=== PATIENT | male | born 1960 | race Caucasian/White ===

== ENCOUNTER 2021-05-04 13:07 | Outpatient (CLI) | payer BC, SELFPAY ==
--- NOTE | ~2021-05-04 | XR_ITS ---
EXAMINATION: XR hip LT min 2V DATE: 05/04/2021 15:20 INDICATION: Left hip pain. TECHNIQUE: 2 views of left hip were obtained. COMPARISON: None. FINDINGS: Bone alignment is normal. No fracture. There is mild left hip osteoarthritis. IMPRESSION: 1. Mild left hip osteoarthritis. Reviewed, dictated and finalized at location A.
--- NOTE | ~2021-05-04 | XR_ITS ---
EXAMINATION: XR knee LT min 4V DATE: 05/04/2021 15:20 INDICATION: Left knee pain. TECHNIQUE: 4 views of left knee including standing views were obtained. COMPARISON: None. FINDINGS: There is varus angulation at the knee. No fracture. There is severe osteoarthritis of media l compartment and mild osteoarthritis of lateral and patellofemoral compartments. There is a small kn ee joint effusion. IMPRESSION: 1. Severe left knee osteoarthritis. 2. Small left knee joint effusion. Reviewed, dictated and finalized at location A.
== END 2021-05-04 13:08 ==
PROVIDERS: PCP Family Medicine; Visit Provider Family Medicine
DX: H83.09 Labyrinthitis, unspecified ear (principal); M25.562 Pain in left knee; M25.552 Pain in left hip; M16.12 Unilateral primary osteoarthritis, left hip; M17.12 Unilateral primary osteoarthritis, left knee; M25.462 Effusion, left knee
CPT/HCPCS: 73502; 73564

== ENCOUNTER 2021-08-06 07:44 | Outpatient (CLI) | payer BC, SELFPAY ==
--- NOTE | ~2021-08-06 | XR_ITS ---
EXAMINATION: XR foot RT min 3V DATE: 08/06/2021 08:09 INDICATION: Right foot pain TECHNIQUE: Dorsoplantar, lateral, and 2 oblique views of the right foot were obtained. COMPARISON: None. FINDINGS: There is no fracture. Mild osteoarthritis is noted in multiple interphalangeal joints. Ther e is questionable plantar subluxation of the second and third middle phalanges with respect to the pr oximal phalanges. The fourth and fifth middle phalanges are not definitely identified. Pes planus is noted. IMPRESSION: 1. Findings consistent with pes planus. Reviewed, dictated and finalized at location A. 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
--- NOTE | ~2021-08-06 | XR_ITS ---
EXAMINATION: XR ankle RT min 3V INDICATION: Right foot pain TECHNIQUE: Three views of the right ankle are obtained. COMPARISON: None available FINDINGS: Pes planus is noted. There is valgus angulation at the tibiotalar joint with widening at th e lateral aspect of the joint space. There is mild lateral subluxation of the talus with respect to t he distal tibia. Cystic change is noted in the lateral malleolus. No fracture is identified. IMPRESSION: 1. Findings consistent with pes planus and lateral hindfoot impingement. Reviewed, dictated and finalized at location A. 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
== END 2021-08-06 07:45 | disposition home or self-care (01) ==
LOC: CHSIMG 07:47
PROVIDERS: PCP Family Medicine; Visit Provider Orthopaedic Surgery
DX: M25.571 Pain in right ankle and joints of right foot (principal); M79.671 Pain in right foot
CPT/HCPCS: 73610; 73630

== ENCOUNTER 2021-10-15 10:54 | Outpatient (CLI) | payer BC, SELFPAY ==
--- NOTE | 2021-10-15 | ECG_ITS ---
Measurements Intervals [place] Rate: 71 P: 33 [place]: 154 QRS: -2 QRSD: 104 T: 62 QT: 387 QTc: 421 Interpretive Statements SINUS RHYTHM NORMAL ECG Electronically Signed On 10-15-2021 13:57:32 COMPRESSOR OPERATOR by Aleksandr Rubalcava D.O.
[2021-10-15 11:52] LABS: Hematocrit 44.8 % (42.0-52.0); Hemoglobin 15.5 g/dL (14.0-18.0)
[2021-10-15 12:02] LABS: Albumin Level 4.7 g/dL (3.5-5.1); Estimated Glomerular Filt Rate > 60; Glucose 98 mg/dL (65-110)
[2021-10-15 12:05] LABS: Urine Cotinine NEGATIVE
== END 2021-10-15 10:55 | disposition home or self-care (01) ==
PROVIDERS: PCP Family Medicine; Visit Provider Orthopaedic Surgery
DX: Z01.818 Encounter for other preprocedural examination (principal); M17.12 Unilateral primary osteoarthritis, left knee
CPT/HCPCS: 80307; 82040; 82565; 82947; 85014; 85018; 93005

== ENCOUNTER 2021-11-14 11:55 | Outpatient (CLI) | payer BC, SELFPAY ==
[2021-11-14 13:31] LABS: Basophils Absolute Auto 0.1 K/mm3 (0.0-0.1); Basophils Percent Auto 0.8 % (0.2-1.2); Eosinophils Absolute Auto 0.7 K/mm3 (0-0.3); Eosinophils Percent Auto 7.9 % (0-4.4); Hematocrit 45.2 % (42.0-52.0); Hemoglobin 15.4 g/dL (14.0-18.0); Immature Granulocyte Absolute 0.04 K/mm3 (0.00-0.031); Immature Granulocyte Percent A 0.5 % (0-0.5); Lymphocytes Absolute Auto 2.45 K/mm3 (0.9-3.2); Mean Corpuscular HGB Conc 34.1 g/dl (32-36); Mean Corpuscular Hemoglobin 30.4 pg (26-34); Mean Corpuscular Volume 89.3 fl (80-100); Mean Platelet Volume 10.1 fl (7.4-10.4); Monocytes Absolute Auto 0.7 K/mm3 (0.1-0.6); Monocytes Percent Auto 7.6 % (2.6-8.5); Neutrophils Absolute Auto 4.8 K/mm3 (1.3-6.7); Neutrophils Percent Auto 55.2 % (45.5-73.1); Platelet Count Result 245 k/mm3 (150-375); Red Blood Count 5.06 M/mm3 (4.6-6.20); White Blood Count 8.7 K/mm3 (4.5-10.0)
[2021-11-14 14:02] LABS: Hemoglobin A1C 5.1 % (<5.7)
== END 2021-11-14 11:56 | disposition home or self-care (01) ==
LOC: ANHSURGERY 12:01
PROVIDERS: PCP Family Medicine; Visit Provider Orthopaedic Surgery
DX: Z01.818 Encounter for other preprocedural examination (principal); M17.12 Unilateral primary osteoarthritis, left knee
CPT/HCPCS: 36415; 83036; 85025; 86850; 86900; 86901; 87081

== ENCOUNTER 2021-11-27 01:11 | Day surgery (SDC) | payer BC, SELFPAY ==
--- NOTE | 2021-11-14 12:07 | PC.NURSE ---
Report to the Outpatient Waiting Room, entrance under the green pavilion located off [facility], at time _1130_ on date _11/27/21_. OR Time: _1:30PM_. - You and your visitor will be asked a series of questions to screen for COVID 19 for your protection. - A mask is required within the hospital. One visitor will be allowed to accompany the patient into the hospital. Patients visitor will be instructed to remain with patient at all times or leave the building. VISITING HOURS 10AM-7PM, ONE VISITOR ONE TIME A DAY - USE MAIN ENTRANCE Preoperative COVID Testing Requirements: NONE Patients may have clear liquids (water, carbonated beverages, clear teas, apple juice) until 3 hours prior to surgery (1030 AM) with a maximum of 20 ounces. - No food from midnight until time of surgery Take the following medications with a SIP of water the morning of surgery: _TYLENOL IF NEEDED__ Medications to discontinue per DR. JONES - MELOXICAM 7 DAYS PRIOR TO SURGERY, Date to take last dose_11/19/21_ Medications to discontinue per ANESTHESIA - ALL VITAMINS AND SUPPLEMENTS 3 DAYS PRIOR TO SURGERY, Date to take last doe_ Please deodorant, or body powder the day of surgery. No jewelry (including any body piercings) or valuables the day of surgery, leave them at home. Please take a shower or bath the night before, or the morning of, surgery with an antibacterial soap. Wear comfortable, loose fitting clothing. - Jewelry must be removed prior to entering the operating room. Rings and piercings that are not removed may be cut off. - The hospital will not accept responsibility for valuables. - Please leave all valuables, including medications, at home the day of surgery. If you are going home after surgery, a licensed nascar driver must drive you home. - NO public transportation without another adult. - We recommend that an adult stay with you for 24 hours following discharge. - We also recommend that you do not drive, make important decision, drink alcoholic beverages, or take any drugs that were not prescribed by your health care provider for at least 24 hours after your discharge time. Follow any additional instructions given to you from DR. JONES Instructions given to ___PT and asked if any additional questions and then verbalized understanding. Patient advised to call surgeon office or pre surgery nurse liaisonLION [phone] if any additional questions.
[2021-11-14 12:11] VITALS: BP 160/90; PULSE 80; RESP 20; TEMP 37.2; O2SAT 98; BMI 36.8
[2021-11-27] VITALS (13 sets, daily range): BP systolic 119–180; BP diastolic 63–110; PULSE 83–98; RESP 12–22; TEMP 35.9–36.9; O2SAT 92–100
--- NOTE | ~2021-11-27 | XR_ITS ---
EXAMINATION: XR knee LT 2V DATE: 11/27/2021 17:21 INDICATION: Total left knee arthroplasty. Postop. TECHNIQUE: 2 views of left knee were obtained. COMPARISON: Left knee radiographs 11/14/2021 FINDINGS: There is a total left knee arthroplasty with patellar resurfacing in near-anatomic alignmen t. No fracture. There is gas in the knee joint and soft tissues, consistent with recent surgery. Ther e is a small knee joint effusion. IMPRESSION: 1. Total left knee arthroplasty in near-anatomic alignment. Reviewed, dictated and finalized at location A.
--- NOTE | 2021-11-27 07:17 | WPDHPUPDATE1 ---
History and Physical Update Update Date/Time: 11/27/21 07:17 History and Physical has been reviewed, including an updated exam of the patient. There are NO changes in the patient's condition. Risks, benefits, and alternatives have been discussed and questions answered. Patient agrees to proceed with procedure.
--- NOTE | 2021-11-27 08:05 | WPDANESEPPF ---
Anes - Initial Pre Proc Eval Procedure: Operation Date: 11/27/21 13:30 Proposed Procedures p Left Total Knee Arthroplasty - Jose Hawkins MD Date/Time: 11/27/21 08:05 Surgeon: Jose Hawkins MD Pre Op Diagnosis: primary OA left knee Patient Data Age: 61 Gender: M Height: 1.83 m Weight: 123.3 kg Last Vital Signs Temp 37.2 C 11/14/21 12:11 Pulse 80 11/14/21 12:11 Resp 20 11/14/21 12:11 BP 160/90 H 11/14/21 12:11 Pulse Ox 98 11/14/21 12:11 Allergies Allergy/AdvReac Type Severity Reaction Status Date / Time No Known Allergies Allergy Verified 11/14/21 13:30 Home Medications Medication Instructions Recorded Confirmed Type meloxicam 15 mg tablet 15 mg PO QAM 06/08/21 11/14/21 History rosuvastatin 10 mg tablet 10 mg PO QAM 06/08/21 11/14/21 History acetaminophen [Tylenol Ex Str 1,000 mg PO QID PRN 11/14/21 11/14/21 History Rapid Release] cholecalciferol (vitamin D3) 1 cap QAM 11/14/21 11/14/21 History zinc 1 cap QAM 11/14/21 11/14/21 History ECG: Date of Service: 10/15/21 Procedure(s): CA 12 lead EKG Accession Number(s): [id number] cc: ~ Measurements Intervals [place] Rate: 71 P: 33 [place]: 154 QRS: -2 QRSD: 104 T: 62 QT: 387 QTc: 421 Interpretive Statements SINUS RHYTHM NORMAL ECG Electronically Signed On 10-15-2021 13:57:32 INVESTIGATIONS MANAGER by Aleksandr Rubalcava D.O. Patient hx anesthesia problems: none Family hx anesthesia problems: none Results Review: All pre-operative results and documents have been reviewed as part of the pre-operative evaluation. 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 Hyperlipidemia Hypertension Obesity Posterior tibial tendon dysfunction (PTTD) of right lower extremity Right ankle instability Tobacco abuse Tooth pain Surgical History Surgical History History of left knee surgery 1980 & 1975 - Arthroscopic History of repair of anterior cruciate ligament of right knee (~1995) History of throat surgery (~1993) Cyst Excision Family History Family History Father Family history of malignant neoplasm Mother Breast cancer Arthritis Other Family history of cardiovascular disease HLD (hyperlipidemia) Hypertension Social History Social History Smoking packs per day: 2 Smoking cigarettes per day: 40.0 Years smoked: 40 Smoking pack-years: 80.00 Tobacco type: cigarettes Second hand tobacco smoke exposure: No Smoking end date: 08/17/21 Alcohol intake: current Alcohol use details: 15/WEEK WHEN SMOKEING - STATES NOW 2/MONTH Substance use: unknown Substance use type: does not use Living arrangements: with family 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[employer] Gender identity (if verbalized by the patient): Male Spiritual care concerns: No Anes - Eval Final PreProcedure Day of Procedure 11/27/21 08:05 Patient weight: obese Heart: regular rate and rhythm Lungs: clear to auscultation and normal air movement Airway: Mallampati scale class II Neurological: alert and oriented Last oral intake: >/= 8 hours ASA classification: III Emergent: no Anesthetic plan: proceed Anesthesia type and monitoring: general LMA Results Review: All pre-operative results and documents have been reviewed as part of the pre-operative evaluation. Informed Consent: The patient's anesthetic plan and its attendant risks and
--- NOTE | 2021-11-27 08:07 | WPDANESPNB ---
Anes - Peripheral Nerve Block Date/Time: 11/27/21 08:07 I have discussed with the patient/family/POA the placement of a peripheral nerve block for post-operative pain management, including associated risks, benefits, complications, and side effects. Alternative methods of post-operative analgesia were detailed. Questions were solicited and answers provided to the satisfaction of the patient/family/POA. Time-Out: A pre-procedural Time-Out was completed immediately before starting the procedure and confirmed: Patient Identification, Site, Procedure, Patient Position and the Availability of Requisite Equipment. Clinical Indications: Acute post-operative pain management requested by the operative surgeon. Nerve Block Insertion Note Anes-nerve block: adductor canal left Patient position: supine Skin prep: chlorhexidine Needle: 22 gauge, stimulating, insulated echogenic needle. Needle length: 80 mm Technique: ultrasound Technique comment: in plane Injectate: bupivacaine 0.5% with epi 5 mcg/ml (30cc) Observations: tolerated well Complications: none Procedure start time:: 1325 Procedure end time:: 1330
[2021-11-27] MEDS: ACETAMINOPHEN 500 MG TABLET 1000 MG PO (12:26)
[2021-11-27] MEDS: TRANEXAMIC ACID 1,000MG/ISO100 1,000 MG/100 ML BAG 200 MG IVPB (12:26)
[2021-11-27] MEDS: LACTATED RINGERS 1,000 ML 30 ML IV CONT ×2 (12:27→16:25)
[2021-11-27] MEDS: ceFAZolin 3 GM/D5W 100 ML 100 ML IVPB (13:43)
--- NOTE | 2021-11-27 16:29 | W.PM.PROC2 ---
Procedure Note - Detailed Date of Procedure 11/27/21 Pre-op Diagnosis primary OA left knee Post-op Diagnosis Same Procedure Performed Left total knee arthroplasty Surgeon Jose Hawkins MD Technician Chemical Cleaning Teri Montano PA-C Anesthesia General Findings Extensive synovitis throughout the knee with a large effusion. The tissue was quite inflammatory in appearance. Bone quality was very good. Standard 8 mm distal release and 3? external rotation. Minimal tibial resection just through the sclerotic bone performed medially. He did require an extensive medial release. This was expected due to the preoperative clinical presentation and varus thrust. Description of Procedure The patient was given a nerve block preoperatively, and then brought to the operating room. A general anesthetic was administered. The leg was prepped and draped in the usual sterile fashion. The limb was elevated and the tourniquet inflated to 300 mmHg. A longitudinal incision was created along the medial border of the patella and patellar tendon, and a trivector approach to the knee was performed. A large medial release was taken. The knee was then flexed. The osteophytes were carefully removed. The intramedullary guide was placed in the femoral canal. The distal femoral resection was then taken with the oscillating saw. The collateral ligaments were carefully protected. The tibia was carefully exposed. The jig was applied, and the proximal tibia was resected according to preoperative plan. The anesthetic mixture was injected into the periarticular tissues. The knee was balanced in extension with additional medial release required. The anterior and posterior cruciate ligament and meniscal remnants were removed. The patella was measured. Patellar resection was carried out with the oscillating saw. The lug holes drilled. The femur was sized and rotation assessed using a combination of gap balancing, posterior referencing, and the AP axis. The 4 in 1 cutting block was used to finish the femoral cuts after equal gaps were assured. The box cut taken. The osteophytes were carefully removed from the back of the knee. The knee was copiously irrigated with antibiotic solution periodically throughout the procedure. The spacer block was used to confirm equal flexion and extension gaps. The flexion gap was equally balanced with a 13 mm insert. The medial gap remained slightly tight and additional medial release was performed. The lateral compartment and extension was acceptably more lax than the medial side. The tibia was sized and broached. The bony surfaces were prepared for cementing with pulsatile lavage. The real tibial component and femoral components were cemented into position. Excess cement was carefully removed. The polyethylene insert was placed. The patella component was subsequently cemented. Patellar tracking was carefully assessed. No additional releases were required. The wound was closed with #1 Vicryl suture, #2 Quill suture, 2-Nvvenm-usm suture, and 2-0 Strata-fix suture followed by Steri-Strips. A sterile bulky dressing was applied. Meticulous hemostasis was maintained throughout the procedure. There were no complications. The patient was extubated and brought to the recovery room in stable condition after the application of sterile dressing with Jonas bandage. Physician physical therapist assistant, Teri Montano PA-C, required for surgery; including patient positioning, draping, tissue retraction, maintaining instrument position, cement removal, wound closure, and dressing placement. Implants [employer] Triathlon knee system, universal cemented tibia size 7, cemented posterior stabilized femoral component size 6 ,and an 13 mm posterior stabilizing polyethylene insert. 38mm asymmetric cemented patella component. Estimated Blood Loss 200 Drains No Packing No Pathology None sent Complications No immediate complications Condition Stable Disposition PACU
[2021-11-27] MEDS: fentaNYL CITRATE INJ (*CRX) 100 MCG/2 ML VIAL 25 MCG IV PUSH ×8 (16:36→16:51)
[2021-11-27] MEDS: HYDROmorphone HCL INJ (*CRX) 1 MG/ML SYR 0.5 MG IV PUSH ×4 (17:05→17:20)
[2021-11-27] MEDS: diphenhydrAMINE HCl INJ 50 MG/ML VIAL 12.5 MG IV PUSH ×2 (17:07→17:24)
--- NOTE | 2021-11-27 18:00 | ADMGEN ---
This patient, Nick Truong, was admitted to Medical Room 245-. Patient/family oriented to hospital policies and general routines including ID bracelet, bed and alarms, visiting hours, pain management, procedures, bathroom and other care routines, personal items, smoking policy, room service/diet, and visiting hours. Information on how to activate the Rapid Response Team has been discussed. Patient/Family are encouraged to report perceived risks to care and to ask questions if they do not understand what they are told or what they should do.
[2021-11-27] MEDS: SODIUM CHLORIDE 0.9% IV 1,000 ML 125 ML IV CONT (18:41)
[2021-11-27] MEDS: ASPIRIN 81 MG ENTERIC TABLET PO (18:42)
[2021-11-27] MEDS: SENNA/DOCUSATE SODIUM TABLET 2 TAB PO (18:43)
[2021-11-27] MEDS: oxyCODONE HCL (*CRX) 5 MG TAB IR PO (19:35)
[2021-11-27] MEDS: FAMOTIDINE 20 MG TABLET PO (21:12)
[2021-11-27] MEDS: ceFAZolin 2 GM/D5W 50 ML 2 GM/50 ML BAG IVPB (21:12)
[2021-11-28] MEDS: oxyCODONE HCL (*CRX) 5 MG TAB IR PO ×3 (00:09→08:16)
[2021-11-28 03:28] VITALS: BP 119/67; PULSE 83; RESP 20; TEMP 36; O2SAT 97
[2021-11-28] MEDS: ceFAZolin 2 GM/D5W 50 ML 2 GM/50 ML BAG IVPB (05:28)
[2021-11-28] MEDS: SENNA/DOCUSATE SODIUM TABLET 2 TAB PO (08:11)
[2021-11-28] MEDS: MELOXICAM 7.5 MG TABLET 15 MG PO (08:11)
[2021-11-28] MEDS: FAMOTIDINE 20 MG TABLET PO (08:11)
[2021-11-28] MEDS: polyethylene glycoL 3350 17 GM POWD.PACK PO (08:11)
[2021-11-28] MEDS: ASPIRIN 81 MG ENTERIC TABLET PO (08:11)
[2021-11-28] MEDS: ROSUVASTATIN 10 MG TABLET PO (08:11)
--- NOTE | 2021-11-28 10:19 | P.DS_ITS ---
DS: Admitting Diagnosis Discharge Date 11/28/21 Admitting Diagnosis OA knee Left DS: Discharge Diagnosis Discharge Diagnosis (1) Status post left knee replacement: Code(s): Z96.652 - Presence of left artificial knee joint Status: Acute Assessment and Plan: Postop day 1: Left total knee arthroplasty. Patient tolerated procedure well. No complications. Pain manageable with pain medication. No numbness or tingling. We had a lengthy discussion regarding postoperative wound care, limitations, expectations, and exercises. Patient shows good understanding. He has had initial physical therapy and is tolerating it well. DVT prophylaxis: 81 mg baby aspirin b.i.d. for 14 days. Compression socks. Short frequent walks. Pain medication: Percocet. Prednisone. Meloxicam. Patient has followup appointment with Dr. Hawkins in 3 weeks. DS: Summary Hospital Course Reason for hospitalization: Total knee arthroplasty Hospital Course: Patient tolerated procedure well. Has had initial PT/OT. Status at Discharge Functional status at discharge: uses cane/walker Overall status at discharge: patient is progressing back to baseline Time Spent with Patient Time attestation: Total time spent providing and/or coordinating discharge services: Exam Narrative: Overweight 61 y/o Male. Resting comfortably in bed. Wearing compression socks bilaterally. Dressing intact with small amount of bloody drainage. Moderate swelling. Small area of ecchymosis. No erythema. No hematoma. Range of motion limited due to pain. Calf nontender. Neurologic status intact. No varicosities. Distal pulses palpable. Discharge Plan Discharge Patient Disposition: Home, Self-Care Discharge Instructions: See green medication and instruction sheet. Patient Instructions: Precautions after Total Joint Replacement Surgery (DC), Knee Replacement (DC) Follow-up/Referrals: Teri Montano PA [Physician Industrial Maintenance Repairer] - Discharge Medications: New prednisone 5 mg tablet 5 mg PO DAILY 21 Days Qty: 21 RF: 0 aspirin 81 mg tablet,delayed release (DR/EC) 81 mg PO BID 14 Days Qty: 28 RF: 0 oxycodone-acetaminophen 5-325 mg tablet 1 - 2 tablet PO Q4-6H MDD 6 PRN (Reason: pain) Qty: 30 RF: 0 Continued meloxicam 15 mg tablet 15 mg PO QAM RF: 0 rosuvastatin 10 mg tablet 10 mg PO QAM RF: 0 cholecalciferol (vitamin D3) 1 cap QAM RF: 0 zinc 1 cap QAM RF: 0 Held acetaminophen 500 mg Tablet 1,000 mg PO QID PRN (Reason: Pain) RF: 0 Hold Instructions: Resume on 12/12/21. Do not take more than 3,000-4,000 mg Tylenol in a 24 hour period. Pain medication has 325 mg Tylenol in each pill.
[2021-11-28 10:31] VITALS: BP 140/73; PULSE 86; RESP 20; TEMP 36.2; O2SAT 100
[2021-11-28] MEDS: oxyCODONE HCL (*CRX) 5 MG TAB IR 10 MG PO (11:58)
== END 2021-11-28 14:10 | disposition home or self-care (01) ==
LOC: ANHSURGERY 11:19 → ANH2MED 18:03
PROVIDERS: PCP Family Medicine; Visit Provider Orthopaedic Surgery
PROC: (CPT 27447; principal; 2021-11-27 13:30)
DX: M17.12 Unilateral primary osteoarthritis, left knee (principal); G89.18 Other acute postprocedural pain; I10 Essential (primary) hypertension; E78.5 Hyperlipidemia, unspecified; E66.9 Obesity, unspecified; Z68.36 Body mass index [BMI] 36.0-36.9, adult; Z87.891 Personal history of nicotine dependence
CPT/HCPCS: 27447; 64447; 73560; 97110; 97116; 97161; 97165; A9270; C1713; C1776; J0131; J0171; J0690; J1100; J1170; J1200; J1885; J2250; J2270; J2405; J2704; J2795; J3010; J7030; J7120

== ENCOUNTER 2021-12-05 13:21 | Emergency (ER) | payer BC, SELFPAY ==
[2021-12-05] VITALS (9 sets, daily range): BP systolic 132–158; BP diastolic 79–84; PULSE 80–91; RESP 18–26; TEMP 36.9; O2SAT 96–100
--- NOTE | ~2021-12-05 | CT_ITS ---
EXAMINATION: CT brain wo con DATE: 12/05/2021 13:28 INDICATION: Right facial weakness. TECHNIQUE: Computed tomography (CT) of the head was performed without intravenous contrast. The mA wa s adjusted according to patient size. Iterative reconstruction technique was employed. The dose-lengt h product was 605.33 mGy-cm. COMPARISON: None FINDINGS: There is no intracranial hemorrhage, acute infarction, or abnormal intracranial mass lesion . The ventricles are normal in size. There is mild mucosal thickening in the kidneys and sinuses. The orbits are normal. The mastoid air cells are normal. IMPRESSION: 1. Normal brain. I called this result to Dr. Garcia. Reviewed, dictated and finalized at location A.
--- NOTE | ~2021-12-05 | XR_ITS ---
EXAMINATION: XR chest 1V portable EXAM DATE: 12/05/2021 13:40 INDICATION: Left facial drooping, numbness. TECHNIQUE: Portable AP frontal chest x-ray was obtained. There is no prior study for comparison. FINDINGS: The lungs are clear. There are no pleural effusions. Cardiac silhouette is prominent but magnified on this AP technique. There is no pneumothorax suspected. The bones and soft tissues are unremarkable. IMPRESSION: No acute cardiopulmonary findings. Reviewed, dictated and finalized at location A.
--- NOTE | 2021-12-05 13:23 | ECG_ITS ---
Measurements Intervals [place] Rate: 88 P: 43 [place]: 152 QRS: -8 QRSD: 95 T: 64 QT: 350 QTc: 425 Interpretive Statements SINUS RHYTHM COMPARED TO ECG 10/15/2021 11:58:36 NO SIGNIFICANT CHANGES Electronically Signed On 12-05-2021 14:27:52 CDT by Stephie Fallon M.D.
[2021-12-05 13:35] LABS: Glucose Point of Care 143 mg/dl (65-105)
[2021-12-05 13:49] LABS: Basophils Percent Auto 0.3 % (0.2-1.2); Eosinophils Percent Auto 8.7 % (0-4.4); Hematocrit 38.8 % (42.0-52.0); Immature Granulocyte Absolute 0.17 K/mm3 (0.00-0.031); Immature Granulocyte Percent A 1.4 % (0-0.5); Lymphocytes Absolute Auto 1.81 K/mm3 (0.9-3.2); Lymphocytes Percent Auto 15.3 % (18.3-44.2); Mean Corpuscular HGB Conc 33.5 g/dl (32-36); Mean Corpuscular Hemoglobin 30.3 pg (26-34); Mean Corpuscular Volume 90.4 fl (80-100); Mean Platelet Volume 8.8 fl (7.4-10.4); Monocytes Absolute Auto 0.8 K/mm3 (0.1-0.6); Monocytes Percent Auto 6.9 % (2.6-8.5); Neutrophils Absolute Auto 7.9 K/mm3 (1.3-6.7); Neutrophils Percent Auto 67.4 % (45.5-73.1); Platelet Count Result 497 k/mm3 (150-375); Red Blood Count 4.29 M/mm3 (4.6-6.20); Red Cell Distribution Width 12.4 % (11.5-14.5); White Blood Count 11.8 K/mm3 (4.5-10.0)
[2021-12-05 13:58] LABS: Prothrombin Time 12.9 Seconds (11.1-14.7)
[2021-12-05 13:59] LABS: Partial Thromboplastin Time 31.5 SECONDS (22.3-36.8)
[2021-12-05 14:20] LABS: Alanine Aminotransferase 53 U/L (4-50); Albumin Level 4.3 g/dL (3.5-5.1); Alkaline Phosphatase 90 U/L (38-126); Anion Gap 11 mmol/L (8-16); Aspartate Amino Transferase 34 U/L (17-59); Bilirubin,Total 0.7 mg/dL (0.2-1.3); Blood Urea Nitrogen 21 mg/dL (9-20); Calcium 9.3 mg/dL (8.4-10.2); Carbon Dioxide 23 mmol/L (22-30); Chloride 100 mmol/L (98-107); Estimated Glomerular Filt Rate > 60; Glucose 120 mg/dL (65-110); Potassium 4.2 mmol/L (3.4-5.0); Sodium 134 mmol/L (137-145)
[2021-12-05 14:26] LABS: Troponin I < 0.012 ng/mL (0.000-0.034)
--- NOTE | 2021-12-05 15:21 | ED.NEUROSD ---
HPI - Neuro Symptoms/Deficit General Chief Complaint: Suspected CVA Stated Complaint: ?CVA, R facial droop, LNW 1200 Time Seen by Provider: 12/05/21 13:25 Source: patient Mode of arrival: EMS Limitations: no limitations History of Present Illness HPI Narrative: 61-year-old with a history of hyperlipidemia, s/p recent left knee replacement here with complaints of right facial droop started about 1 hour ago. He states that he was sitting down watching TV and he felt his right side of his face numb and droopy. He called his who later called EMS and was brought in here. He denies any headache, chest pain or shortness of breath. Denies any weakness in any of his limbs. No previous history of strokes. Onset (ago): hour(s) (1) Timing confirmed by: spouse Location: right face Severity: moderate Quality: tingling Relieving factors: none Exacerbating factors: none Associated symptoms: denies other symptoms Related Data Home Medications Medication Instructions Recorded Confirmed meloxicam 15 mg tablet 15 mg PO QAM 06/08/21 11/14/21 rosuvastatin 10 mg tablet 10 mg PO QAM 06/08/21 11/14/21 acetaminophen 1,000 mg PO QID PRN 11/14/21 11/14/21 cholecalciferol (vitamin D3) 1 cap QAM 11/14/21 11/14/21 zinc 1 cap QAM 11/14/21 11/14/21 Allergies Allergy/AdvReac Type Severity Reaction Status Date / Time No Known Allergies Allergy Verified 11/27/21 18:16 Review of Systems Review of Systems: All systems reviewed & are unremarkable except as noted in HPI and below Constitutional: Constitutional: Reports no additional constitutional complaints Eyes: Eyes: Reports no additional eye complaints ENT: Reports system reviewed and no additional complaints, except as documented Cardiovascular: Cardiovascular: Reports no additional cardiovascular complaints Respiratory: Respiratory: Reports no additional respiratory complaints Gastrointestinal: Gastrointestinal: Reports no additional gastrointestinal complaints Musculoskeletal: Musculoskeletal: Reports no additional musculoskeletal complaints Neurologic: Reports as per HPI Psychiatric: Psychiatric: Reports no additional psychiatric complaints [facility] Past Medical History Medical History 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 Hyperlipidemia Hypertension Obesity Posterior tibial tendon dysfunction (PTTD) of right lower extremity Right ankle instability Tobacco abuse Tooth pain Surgical History Surgical History History of left knee surgery 1980 & 1975 - Arthroscopic History of repair of anterior cruciate ligament of right knee (~1995) History of throat surgery (~1993) Cyst Excision Family History Family History Father Family history of malignant neoplasm Mother Breast cancer Arthritis Other Family history of cardiovascular disease HLD (hyperlipidemia) Hypertension Social History Social History Smoking status: Never smoker Second hand tobacco smoke exposure: No Alcohol intake: current Drinks per week: 10 Alcohol use details: 15/WEEK WHEN SMOKEING - STATES NOW 2/MONTH Substance use type: marijuana Other substance usage details: Marijuana over a year ago 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 HEAD: Normocephalic, atraumatic. EYES: PERRLA and EOMI. ENT: Nares clear, no rhinorrhea or epistaxis. Mucous membranes moist. Right facial droop NECK: Supple. CHEST: Clear to auscultation. No respiratory distress. HEART: Regular rate and rhythm. No murmur heard. Normal peripheral pulses. ABDOMEN: Soft,
== END 2021-12-05 15:40 | disposition home or self-care (01) ==
PROVIDERS: Emergency Provider Family Medicine; PCP Family Medicine
DX: G51.0 Bell's palsy (principal); M19.90 Unspecified osteoarthritis, unspecified site; I10 Essential (primary) hypertension; E78.5 Hyperlipidemia, unspecified
CPT/HCPCS: 36415; 70450; 71045; 80053; 82948; 84484; 85025; 85610; 85730; 93005; 99284

== ENCOUNTER 2021-12-12 09:46 | Outpatient (RCR) | payer BC, SELFPAY ==
--- NOTE | 2021-12-12 10:57 | PTOPEVAL ---
Thank you for referring Nick Truong to [facility]– [place] The patient is scheduled to be seen for therapy? __3__x/week for 12 visits. Please review, sign, date and return this plan of care ANU. I agree with and certify that the following plan of care is medically necessary. Referring Physician Date Admitting Provider: Attending Provider: Jose Hawkins MD Referring Provider: *PT Outpatient Evaluation Start: 12/12/21 10:05 Freq: Status: Active Protocol: Document 12/12/21 10:03 SHADIA (Rec: 12/12/21 10:56 [email or web address]) Therapy Assessment Status Assessment Status Assessment Status Evaluation Outpatient Past Medical History Neurological History Hx Neurological Disorders No Significant History Cardiovascular History Hx Hypercholesterolemia Yes Respiratory History Hx Respiratory Disorders No Significant History Gastrointestinal History Hx Gastrointestinal Disorders No Significant History Genitourinary History Hx Genitourinary Disorders No Significant History Musculoskeletal History Hx Arthritis Yes: GENERALIZED Hx Orthopedic Surgery Yes: RT KNEE ACL, LT KNEE X2 Hx Other Musculoskeletal Disorders Yes: PT OCCASIONALLY AMBULATES WITH CANE Hematological History Hx Hematological Disorders No Significant History Endocrine History Hx Endocrine Disorders No Significant History HEENT History Hx Sinus Problems Yes: TEETH REMOVED 08/2021 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 11/14/21 Hx Other HEENT Disorders Yes: READING GLASSES Integumentary History Hx Excision Skin Lesion Yes: EXC SUBCUTANEOUS CYST RT ANTERIOR NECK, EXC FATTY TUMOR LT GROIN Reproductive History Hx Reproductive Disorders No Significant History Psychosocial History Hx Recent Lifestyle Changes Yes: QUIT SMOKING 08/17/21 AFTER 40YRS OF SMOKING Pain History Has Past Pain Affected Your Daily Life Yes: RT KNEE Anesthesia History Hx Anesthesia Reactions No Significant History Other History Hx Implanted Device Yes Evaluation Information Problem Diagnosis s/p left TKA Onset 11/27/21 Subjective Information Pt. reports that he underwent Query Text:As Reported By Patient/ surgery on 11/27/21. He states Family that he developed complication after surgery and could not initially begin therapy after surgery. He reports that he has been doing light exercise at home. He states that he is curr
--- NOTE | 2022-01-10 12:01 | PTOPEVAL ---
Thank you for referring Nick Truong to [facility].? The patient is scheduled to be seen for therapy? __1__x/week for 4 visits. Please review, sign, date and return this plan of care ANU. I agree with and certify that the following plan of care is medically necessary. Referring Physician Date Admitting Provider: Attending Provider: Jose Hawkins MD Referring Provider: *PT Outpatient Evaluation Start: 12/12/21 10:05 Freq: Status: Active Protocol: Document 01/09/22 11:24 SHADIA (Rec: 01/09/22 11:57 SHADIA [email or web address]) Therapy Assessment Status Assessment Status Assessment Status Progress Outpatient Past Medical History Neurological History Hx Neurological Disorders No Significant History Cardiovascular History Hx Hypercholesterolemia Yes Respiratory History Hx Respiratory Disorders No Significant History Gastrointestinal History Hx Gastrointestinal Disorders No Significant History Genitourinary History Hx Genitourinary Disorders No Significant History Musculoskeletal History Hx Arthritis Yes: GENERALIZED Hx Orthopedic Surgery Yes: RT KNEE ACL, LT KNEE X2 Hx Other Musculoskeletal Disorders Yes: PT OCCASIONALLY AMBULATES WITH CANE Hematological History Hx Hematological Disorders No Significant History Endocrine History Hx Endocrine Disorders No Significant History HEENT History Hx Sinus Problems Yes: TEETH REMOVED 08/2021 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 11/14/21 Hx Other HEENT Disorders Yes: READING GLASSES Integumentary History Hx Excision Skin Lesion Yes: EXC SUBCUTANEOUS CYST RT ANTERIOR NECK, EXC FATTY TUMOR LT GROIN Reproductive History Hx Reproductive Disorders No Significant History Psychosocial History Hx Recent Lifestyle Changes Yes: QUIT SMOKING 08/17/21 AFTER 40YRS OF SMOKING Pain History Has Past Pain Affected Your Daily Life Yes: RT KNEE Anesthesia History Hx Anesthesia Reactions No Significant History Other History Hx Implanted Device Yes Evaluation Information Problem Diagnosis s/p left TKA Onset 11/27/21 Subjective Information Pt. reports he is improved. 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
--- NOTE | 2022-01-17 06:38 | PTOPEVAL ---
Thank you for referring Nick Truong to [facility] - [place].? The patient is scheduled to be seen for therapy? __2__x/week for 8 visits. Please review, sign, date and return this plan of care ANU. I agree with and certify that the following plan of care is medically necessary. Referring Physician Date Admitting Provider: Attending Provider: Jose Hawkins MD Referring Provider: *PT Outpatient Evaluation Start: 12/12/21 10:05 Freq: Status: Active Protocol: Document 01/09/22 11:24 SHADIA (Rec: 01/09/22 11:57 SHADIA [email or web address]) Therapy Assessment Status Assessment Status Assessment Status Progress Outpatient Past Medical History Neurological History Hx Neurological Disorders No Significant History Cardiovascular History Hx Hypercholesterolemia Yes Respiratory History Hx Respiratory Disorders No Significant History Gastrointestinal History Hx Gastrointestinal Disorders No Significant History Genitourinary History Hx Genitourinary Disorders No Significant History Musculoskeletal History Hx Arthritis Yes: GENERALIZED Hx Orthopedic Surgery Yes: RT KNEE ACL, LT KNEE X2 Hx Other Musculoskeletal Disorders Yes: PT OCCASIONALLY AMBULATES WITH CANE Hematological History Hx Hematological Disorders No Significant History Endocrine History Hx Endocrine Disorders No Significant History HEENT History Hx Sinus Problems Yes: TEETH REMOVED 08/2021 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 11/14/21 Hx Other HEENT Disorders Yes: READING GLASSES Integumentary History Hx Excision Skin Lesion Yes: EXC SUBCUTANEOUS CYST RT ANTERIOR NECK, EXC FATTY TUMOR LT GROIN Reproductive History Hx Reproductive Disorders No Significant History Psychosocial History Hx Recent Lifestyle Changes Yes: QUIT SMOKING 08/17/21 AFTER 40YRS OF SMOKING Pain History Has Past Pain Affected Your Daily Life Yes: RT KNEE Anesthesia History Hx Anesthesia Reactions No Significant History Other History Hx Implanted Device Yes Evaluation Information Problem Diagnosis s/p left TKA Onset 11/27/21 Subjective Information Pt. reports he is improved. 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
== END 2022-02-13 16:20 | disposition home or self-care (01) ==
LOC: CHSPT 09:46
PROVIDERS: Visit Provider Orthopaedic Surgery
DX: Z47.1 Aftercare following joint replacement surgery (principal); Z96.652 Presence of left artificial knee joint
CPT/HCPCS: 97016; 97110; 97112; 97161; 97530

== ENCOUNTER 2022-10-14 13:17 | Outpatient (CLI) | payer OTHER, SELFPAY ==
--- NOTE | ~2022-10-14 | MR_ITS ---
EXAMINATION: MR shoulder RT wo con DATE: 10/14/2022 14:41 INDICATION: Right shoulder pain, radiating to the elbow, pulling injury on the very first, limited RO M. TECHNIQUE: Magnetic resonance imaging (MRI) of the right shoulder was performed without intravenous c ontrast. Sequences included axial PD-weighted FS FSE, coronal oblique PD-weighted FS FSE and T2-weigh tu FS FSE, and sagittal oblique T2-weighted FS FSE and T1-weighted FSE. COMPARISON: None. FINDINGS: Coracoacromial arch: No significant anterolateral downsloping of the type I acromion. No significant subcoracoid or subacr omial narrowing. Minimal acromial tip enthesopathy. Moderate AC joint hypertrophy Rotator cuff: Moderate thickening and abnormal signal within the distal portions of the supraspinatus and infraspin atus tendons, in the critical zone. The subscapularis and teres minor are intact. Bursal sided frayin g. Biceps tendon and glenoid labrum: The long head of biceps tendon is torn and retracted. The short head of biceps tendon is intact. Exte nsive signal change in the glenoid labrum. Granulation tissue filled posterior labral tear, extending superiorly. Fluid: Moderate fluid in the subacromial subdeltoid bursa and along the pathway and tendon sheath of the tor n long head of biceps tendon. Bones/cartilage: No suspicious focal or diffuse marrow signal. Degenerative subcortical cystic change in the posterior lateral humeral head and inferior to the lesser tuberosity. IMPRESSION: 1. Complete tear of the long head of biceps tendon, with retraction. 2. Moderate supraspinatus and infraspinatus tendinopathy, with bursal sided fraying. 3. Moderate subacromial/subdeltoid bursitis. 4. Healed/partially healed SLAP tear. 5. Moderate AC joint and mild glenohumeral joint osteoarthritis. Reviewed, dictated and finalized at location K. MANAGEMENT SUPERVISOR IMPRESSION: 1. Complete tear of the long head of biceps tendon, with retraction. 2. Moderate supraspinatus and infraspinatus tendinopathy, with bursal sided fra milly. 3. Moderate subacromial/subdeltoid bursitis. 4. Healed/partially healed SLAP tear. 5. Moderate AC joint and mild glenohumeral joint osteoarthritis.
== END 2022-10-14 13:18 ==
PROVIDERS: PCP Family Medicine; Visit Provider Physician Assistant
DX: S46.111A Strain of muscle, fascia and tendon of long head of biceps, right arm, initial encounter (principal); M75.51 Bursitis of right shoulder; S43.431A Superior glenoid labrum lesion of right shoulder, initial encounter; M19.011 Primary osteoarthritis, right shoulder; T14.90XA Injury, unspecified, initial encounter
CPT/HCPCS: 73221

== ENCOUNTER 2022-11-25 14:59 | Outpatient (RCR) | payer OTHER, SELFPAY ==
[2022-11-25 15:11] VITALS: BP_SYST 170
--- NOTE | 2022-11-25 17:01 | PTOPEVAL1 ---
Assessment and note entered by Isabelle Witt DPT Evaluation Information Assessment Status Evaluation Diagnosis R shoulder pain Onset 10/02/22 Subjective Information Patient reports on 10/02/22 he was pulling forcibly on a stuck [place] and felt a tearing sensation in the anterior shoulder with acute pain . Since injury he has felt some improvement in pain. Primarily in the biceps area. Radiates towards the elbow with tingling in the hand. Also aggravated by wrist movements. He was unable to get into the MD for 6 weeks after MRI and they would like to try conservative treatment. 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 Reported Pain Level Pain Score 0: Self Report Assessment PT Clinical Summary Patient is a 62 year old male who presents to PT with R shoulder pain following long head of bicep tear. Patient demonstrates increased pain at the R shoulder, decreased AROM of the R shoulder and decreased R shoulder strength impairing his ability to perform work duties. He would benefit from skilled PT to address impairments and return to PLOF. Plan of Care Interventions Electrical Stimulation,Hot Pack/Cold Pack,Manual Therapy,Neuro Re-education,Patient/Caregiver Educati,Therapeutic Activities,Therapeutic Exercise PT Services Indicated Yes Treatment Frequency and 3x weekly for 12 visits Duration These treatments will address the objective and functional deficits as defined above. The patient will be advanced safely and appropriately in order for the patient to progress towards his/her prior level of function. Additional exercises will be introduced and as well as a comprehensive home exercise program upon discharge, if needed, ?to ensure carryover of functional gains achieved in the clinic. This treatment plan has been reviewed and agreement upon by the patient.
[2022-12-16 15:00] VITALS: BP_SYST 170
--- NOTE | 2022-12-16 15:55 | PTOPPROGNS ---
Assessment and note entered by Isabelle Witt DPT Evaluation Information Assessment Status Re-evaluation Diagnosis R shoulder pain Onset 10/02/22 Subjective Information Mr. Truong reports that he continues to have limited use of his R shoulder with minimal improvements since start of PT. He reports that numbness continues to radiate to the hand. He does report overall decrease in R shoulder pain. Assessment PT Clinical Summary Patient has been seen for 10 visits of skilled PT at this time. He has made improvements in R shoulder AROM but contineus to lack R shoulder strength. He also continues to report numbness down into his hand. He is still working at light duty and returns to MD on 12/26/22. He will continue to be progressed per MD recommendations. Plan of Care Interventions Electrical Stimulation,Hot Pack/Cold Pack,Manual Therapy,Neuro Re-education,Patient/Caregiver Educati,Therapeutic Activities,Therapeutic Exercise PT Services Indicated Yes Treatment Frequency and continue per current POC Duration These treatments will address the objective and functional deficits as defined above. The patient will be advanced safely and appropriately in order for the patient to progress towards his/her prior level of function. Additional exercises will be introduced and as well as a comprehensive home exercise program upon discharge, if needed, ?to ensure carryover of functional gains achieved in the clinic. This treatment plan has been reviewed and agreement upon by the patient.
[2022-12-20 14:55] VITALS: BP_SYST 170
--- NOTE | 2022-12-20 16:03 | PTOPEVAL1 ---
Assessment and note entered by Isabelle Witt DPT Evaluation Information Assessment Status Re-evaluation Diagnosis R shoulder pain Onset 10/02/22 Subjective Information Patient reports minimal improvements since start of treatment. He reports he continues to have aching at the shouldler, numbness at the little finger and soreness at the elbow. Reported Pain Level Pain Score 1: Self Report Assessment PT Clinical Summary Patient has been seen for 12 visits of skilled PT at this time. He has made improvements in R shoulder AROM and minimal improvments in strength but contineus to lack full R shoulder ROM and strength. He also continues to report numbness down into his hand with tenderness noted at the elbow. He is still working at light duty and returns to MD on 12/26/22. He will continue to be progressed per MD recommendations following MD appointment. Plan of Care Interventions Electrical Stimulation,Hot Pack/Cold Pack,Manual Therapy,Neuro Re-education,Patient/Caregiver Educati,Therapeutic Activities,Therapeutic Exercise PT Services Indicated Yes Treatment Frequency and continue per MD recommendations Duration These treatments will address the objective and functional deficits as defined above. The patient will be advanced safely and appropriately in order for the patient to progress towards his/her prior level of function. Additional exercises will be introduced and as well as a comprehensive home exercise program upon discharge, if needed, ?to ensure carryover of functional gains achieved in the clinic. This treatment plan has been reviewed and agreement upon by the patient.
--- NOTE | 2023-01-09 15:51 | PTOPREEVAL ---
Assessment and note entered by JT File, PT Evaluation Information Assessment Status Re-evaluation Diagnosis R shoulder pain Onset 10/02/22 Subjective Information patient has been away from therapy at follow up MD appointments. he reports right now the MD does not want to do anymore testing, but suggests patient to continue skilled PT. he reports he continues to have pain in the R shoulder, weakness of the R UE, and numbness/tingling in the R UE. he reports the R hand little and ring finger still like to claw up on him. Reported Pain Level Pain Score 1: Self Report Assessment PT Clinical Summary mr. shafer presents to skilled PT for re- evaluation and continuation of POC. his MD has suggested continued skilled PT for shoulder weakness, decreased rom, UE nerual symptoms, and decreased function/work performance. he presents with all these symptoms with the addition of pain. he has shown a regression in shoulder mobility and strength since his last re-evaluation and being away from skilled PT. he would benefit from continued skilled PT to improve his objective/ functional deficits to be able to return to his prior level work performance and functional abilities. Plan of Care Interventions Electrical Stimulation,Hot Pack/Cold Pack,Manual Therapy,Neuro Re-education,Patient/Caregiver Educati,Therapeutic Activities,Therapeutic Exercise PT Services Indicated Yes Treatment Frequency and continue skilled PT 3x weekly for 12 more visits Duration These treatments will address the objective and functional deficits as defined above. The patient will be advanced safely and appropriately in order for the patient to progress towards his/her prior level of function. Additional exercises will be introduced and as well as a comprehensive home exercise program upon discharge, if needed, ?to ensure carryover of functional gains achieved in the clinic. This treatment plan has been reviewed and agreement upon by the patient.
--- NOTE | 2023-02-19 21:00 | PTOPDC ---
Assessment and note entered by JT File, PT Evaluation Information Assessment Status Discharge Diagnosis R shoulder pain Onset 10/02/22 Subjective Information patient reports he continues to have pain in the R shoulder. he reports he sees the MD later this week. he reports he is still really concerned about the pain not getting better. Assessment PT Clinical Summary mr. shafer presents to skilled PT for his re- evaluation on the last visit of his POC. he presents today with continued pain, weakness, and deficits in rom. he has met goal for HEP performance, but no others. he would best DC skilled PT today, and follow up with MD for next steps. Plan of Care PT Services Indicated Yes
== END 2023-01-31 16:43 | disposition home or self-care (01) ==
LOC: CHSPT 14:59
PROVIDERS: Visit Provider Orthopaedic Surgery
DX: S46.011D Strain of muscle(s) and tendon(s) of the rotator cuff of right shoulder, subsequent encounter (principal); S46.211D Strain of muscle, fascia and tendon of other parts of biceps, right arm, subsequent encounter
CPT/HCPCS: 97012; 97014; 97110; 97140; 97161; 97530; G0283

== ENCOUNTER 2023-02-21 13:37 | Outpatient (CLI) | payer OTHER, BC, SELFPAY ==
--- NOTE | ~2023-02-21 | MR_ITS ---
EXAMINATION: MR elbow RT wo con DATE: 02/21/2023 14:41 INDICATION: Right ulnar nerve lesion TECHNIQUE: Magnetic resonance imaging (MRI) of the right elbow was performed without intravenous cont rast. Sequences included coronal, axial, and sagittal PD-weighted FS FSE and coronal, axial, and sagi ttal PD-weighted FSE. COMPARISON: None FINDINGS: Osseous/other: Normal alignment. Normal marrow signal with no marrow edema, fracture or pathologic marrow replacing process. Severe osteoarthritis at the right elbow most prominent at the radiocapitellar articulation where there is extensive full and near full-thickness cartilage loss. Scattered subarticular cystlik e changes along the articular surfaces of the coronoid process and cortex at the capitellar and troch lear articular surfaces of the distal humerus. Moderate size marginal osteophytes are present. Tendons: Triceps and brachialis tendons are normal. There is moderate tendinopathy without tear of the biceps brachii tendon. Mild tendinopathy without tear of the common flexor and extensor tendon wads. Ligaments: There is thickening and increased signal at the proximal humeral side of the lateral collateral ligam ent complex and to lesser degree at the common flexor tendon complex without significant surrounding edema consistent with likely scarring related to chronic sprains. Cubital tunnel: There are couple small ganglion cysts along the medial side of the joint space, one extending to sole g the posterior medial aspect of the ulna distal to the olecranon and the second measuring 11 x 5 x 5 mm on underlies the ulnar nerve at the distal margin of the cubital tunnel. There is also a small linda int effusion with fluid in the medial recess of the ulnotrochlear articulation bulging along the medi al margin of the cubital tunnel. There is mild fusiform thickening of the ulnar nerve centered at the level of the cubital tunnel. IMPRESSION: 1. 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 2. Small joint effusion and small ganglion cyst along the medial epicondyle which exerts mild mass ef fect upon the mildly thickened ulnar nerve at and slightly distal to the level of the cubital tunnel. 3. Mild scarring related to chronic sprains at the medial and lateral collateral ligament complexes. 4. Moderate tendinopathy of the distal biceps brachii tendon and mild tendinopathy, flexor and extens or tendon wads, all without discrete tear. Reviewed, dictated and finalized at location A. IMPRESSION: 1. 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 2. Small joint effusion and small ganglion cyst along the medial epicondyle whi ch exerts mild mass effect upon the mildly thickened ulnar nerve at and slightl y distal to the level of the cubital tunnel. 3. Mild scarring related to chronic sprains at the medial and lateral collatera l ligament complexes. 4. Moderate tendinopathy of the distal biceps brachii tendon and mild tendinopa thy, flexor and extensor tendon wads, all without discrete tear.
== END 2023-02-21 13:38 | disposition home or self-care (01) ==
LOC: ANHIMG 13:38
PROVIDERS: PCP Family Medicine; Visit Provider Orthopaedic Surgery
DX: G56.21 Lesion of ulnar nerve, right upper limb (principal); M19.021 Primary osteoarthritis, right elbow; M25.421 Effusion, right elbow; M67.421 Ganglion, right elbow; S53.441A Ulnar collateral ligament sprain of right elbow, initial encounter; M75.21 Bicipital tendinitis, right shoulder
CPT/HCPCS: 73221

== ENCOUNTER 2023-03-12 09:30 | Outpatient (CLI) | payer OTHER, BC, SELFPAY ==
--- NOTE | 2023-03-12 11:00 | NEURO_ITS ---
Impression: # Complains of right hand weakness. # Right moderate Carpal Tunnel Syndrome. 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 # Abnormal needle/EMG exam. Nerve Conduction Studies Anti Sensory Summary Table Stim Site NR Peak (ms) P-T Amp (?V) Site1 Site2 Delta-P (ms) Dist (cm) Eliud (m/s) Right Median Anti Sensory (2-3nd Digit) Wrist 5.6 14.9 Wrist 2-3nd Digit 5.6 14.0 25 Wrist 6.5 16.9 Wrist 2-3nd Digit 5.6 14.0 25 Right Radial Anti Sensory (Base 1st Digit) Wrist 2.5 10.0 Wrist Base 1st Digit 2.5 0.0 Right Ulnar Anti Sensory (5th Digit) Wrist 5.1 4.6 Wrist 5th Digit 5.1 14.0 27 Motor Summary Table Stim Site NR Onset (ms) O-P Amp (mV) Site1 Site2 Delta-0 (ms) Dist (cm) Eliud (m/s) Right Median Motor (Abd Poll Brev) Wrist 5.1 2.2 Elbow Wrist 6.2 31.0 50 Elbow 11.3 2.3 Right Ulnar Motor (Abd Dig Minimi) Wrist 2.9 3.6 A Elbow Wrist 10.0 32.0 32 A Elbow 12.9 1.8 B Elbow Wrist 4.1 22.0 54 B Elbow 7.0 1.6 F Wave Studies NR F-Lat (ms) L-R F-Lat (ms) Right Median (Mrkrs) (Abd Poll Brev) 34.06 Right Ulnar (Mrkrs) (Abd Dig Min) 35.77 EMG Side Muscle Nerve Root Ins Act Fibs Amp Dur Recrt Comment Right 1stDorInt Ulnar C8-T1 Incr 2+ Nml >12ms Reduced Right Ext Indicis Radial (Post Int) C7-8 Nml Nml Nml Nml Nml Right Ext Digitorum Radial (Post Int) C7-8 Nml Nml Nml Nml Nml Right BrachioRad Radial C5-6 Nml Nml Nml Nml Nml Right PronatorTeres Median C6-7 Nml Nml Nml Nml Nml Right Abd Poll Brev Median C8-T1 Nml Nml Nml Nml Reduced Right ABD Dig Min Ulnar C8-T1 Incr 2+ Nml >12ms Reduced Right Biceps Musculocut C5-6 Nml Nml Nml Nml Reduced Right Triceps Radial C6-7-8 Nml Nml Nml Nml Reduced Right Deltoid Axillary C5-6 Nml Nml Nml Nml Nml MTDD
== END 2023-03-12 09:31 | disposition home or self-care (01) ==
LOC: ANHNEURO 09:30
PROVIDERS: PCP Family Medicine; Visit Provider Orthopaedic Surgery
DX: G56.21 Lesion of ulnar nerve, right upper limb (principal); G56.01 Carpal tunnel syndrome, right upper limb
CPT/HCPCS: 95886; 95909

== ENCOUNTER 2023-04-14 15:50 | Outpatient (RCR) | payer OTHER, SELFPAY ==
--- NOTE | 2023-04-18 15:24 | BUOTOPEVAL ---
Assessment and note entered by Marycarmen Arevalo OT Evaluation Information Assessment Status Evaluation Diagnosis Ulnar neuropathy of R UE Onset 04/08/2023 Subjective Information The patient reports pain 5/10 with 10/10 at the worst. He reports constant aching with numbness and tingling in ring and small fingers of R UE. The patient states that he lives with his and daughter who are able to help him but he is unable to use is entire UE at this time. The patient reports that next week his stitches are to be removed by therapist. The patient stated he has trouble doing all of his daily activities at this time. Reported Pain Level Pain Score 3: Self Report Pain Score 5: Self Report Assessment OT Clinical Summary The patient is a 62 year old male who was referred to outpatient OT due to ulnar neuropathy of R UE which affect his ability to perform daily tasks. The patient recieved surgery of ulnar nerve transposition where he now have two large incisions on R UE at anterior forearm. 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 The patient previously demonstrated WNL UE AROM, strength, field artillery cannoneer strength, and no edema or pain. The patient requires skilled OT to address current deficits and increase UE function. Plan of Care Interventions Therapeutic Exercise,Manual Therapy,Neuro Re- education,Therapeutic Activities,Hot Pack/Cold Pack,Electrical Stimulation,Sensory Integrative Techn,Self-Care/Home Management,Ultrasound OT Services Indicated Yes Treatment Frequency and 2-3x/week for 4 to 6 weeks. Duration These treatments will address the objective and functional deficits as defined above. The patient will be advanced safely and appropriately in order for the patient to progress towards his/her prior level of function. Additional exercises will be introduced and as well as a comprehensive home exercise program upon discharge, if needed, ?to ensure carryover of functional gains achieved in the clinic. This treatment plan has been reviewed and agreement upon by the patient.
--- NOTE | 2023-05-09 12:34 | OTOPPROG ---
Assessment and note entered by Marycarmen Arevalo, OT Evaluation Information Assessment Status Progress Diagnosis Ulnar neuropathy of R UE Subjective Information The patient stated he feels that his wrist is weak but is motivated to improve his function and strength. The patient reports that over the weekend he rested his arm in his sling for so long that his elbow got numb and tingly and became painful. The patient stated when he does not have his R elbow resting on a hard surface he does not have any pain. Assessment OT Clinical Summary The patient demonstates significant progress in R UE edema, AROM, and pain which have improved the patient's ability to perform ADLs. The patient continues to demonstrate difficulties with AROM, strength, edema, and sensation which affect the patient's ability to perform daily tasks without discomfort and return to PLOF needed to return to work. The patient continues to require skilled OT to address these deficits and return to work. Plan of Care Interventions Therapeutic Exercise,Manual Therapy,Neuro Re- education,Therapeutic Activities,Hot Pack/Cold Pack,Cognitive Function,Electrical Stimulation, Sensory Integrative Techn,Self-Care/Home Management,Ultrasound OT Services Indicated Yes Treatment Frequency and 2x/week for 10 visits. Duration These treatments will address the objective and functional deficits as defined above. The patient will be advanced safely and appropriately in order for the patient to progress towards his/her prior level of function. Additional exercises will be introduced and as well as a comprehensive home exercise program upon discharge, if needed, ?to ensure carryover of functional gains achieved in the clinic. This treatment plan has been reviewed and agreement upon by the patient.
--- NOTE | 2023-05-12 09:13 | BUOTOPEVAL ---
Assessment and note entered by Marycarmen Arevalo, OT Evaluation Information Assessment Status Progress Diagnosis Ulnar neuropathy of R UE Onset 04/08/2023 Subjective Information The patient stated he feels that his wrist is weak but is motivated to improve his function and strength. The patient reports that over the weekend he rested his arm in his sling for so long that his elbow got numb and tingly and became painful. The patient stated when he does not have his R elbow resting on a hard surface he does not have any pain. Reported Pain Level Pain Score 0: Self Report Pain Score 0,3: Self Report Pain Score 0: Self Report Pain Score 3: Self Report Pain Score 0: Self Report Pain Score Moderate Pain: Garcia Pak Pain Score 3: Self Report Pain Score 0: Self Report Pain Score 3: Self Report Pain Score 5: Self Report Assessment OT Clinical Summary The patient demonstates significant progress in R UE edema, AROM, and pain which have improved the patient's ability to perform ADLs. The patient continues to demonstrate difficulties with AROM, strength, edema, and sensation which affect the patient's ability to perform daily tasks without discomfort and return to PLOF needed to return to work. The patient continues to require skilled OT to address these deficits and return to work. Plan of Care Interventions Therapeutic Exercise,Manual Therapy,Neuro Re- education,Therapeutic Activities,Hot Pack/Cold Pack,Cognitive Function,Electrical Stimulation, Sensory Integrative Techn,Self-Care/Home Management,Ultrasound OT Services Indicated Yes Treatment Frequency and 2x/week for 10 visits. Duration These treatments will address the objective and functional deficits as defined above. The patient will be advanced safely and appropriately in order for the patient to progress towards his/her prior level of function. Additional exercises will be introduced and as well as a comprehensive home exercise program upon discharge, if needed, ?to ensure carryover of functional gains achieved in the clinic. This treatment plan has been reviewed and agreement upon by the patient.
--- NOTE | 2023-05-19 16:44 | OTOPREEVAL ---
Assessment and note entered by Marycarmen Arevalo OT Evaluation Information Assessment Status Re-evaluation Reported Pain Level Pain Score 0: Self Report Assessment OT Clinical Summary The patient continues to require skilled OT due to deficits in R wrist AROM/PROM, cloth shearer/pinch strength, wrist strength, pain, and scar management which is affecting the patient's ability to improve function of R UE and return to work to provide an income for his family. The patient demonstrates progress in wrist flexion AROM and scar healing. The patient continues to demonstrate the need for skilled OT to improve function. Plan of Care Interventions Therapeutic Exercise,Manual Therapy,Neuro Re- education,Therapeutic Activities,Hot Pack/Cold Pack,Electrical Stimulation,Sensory Integrative Techn,Self-Care/Home Management,Prosthetic Training,Check Out for Orthotic/Pr OT Services Indicated Yes Treatment Frequency and 3x/week for 10 visits. Duration These treatments will address the objective and functional deficits as defined above. The patient will be advanced safely and appropriately in order for the patient to progress towards his/her prior level of function. Additional exercises will be introduced and as well as a comprehensive home exercise program upon discharge, if needed, ?to ensure carryover of functional gains achieved in the clinic. This treatment plan has been reviewed and agreement upon by the patient.
--- NOTE | 2023-06-06 15:38 | OTOPPROG ---
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 The patient continues to demonstrates deficits in UE AROM of elbow and wrist, UE strength in elbow and wrist, edema management, scar buildup, and airport operations manager/pinch strength that are all needed for him to return to work and provide income for his family. The patient to continues to require skilled OT to address these deficits. Plan of Care Interventions Therapeutic Exercise,Manual Therapy,Neuro Re- education,Therapeutic Activities,Hot Pack/Cold Pack,Electrical Stimulation,Self-Care/Home Management,Ultrasound OT Services Indicated Yes Treatment Frequency and 2x/week for 10 visist. Duration These treatments will address the objective and functional deficits as defined above. The patient will be advanced safely and appropriately in order for the patient to progress towards his/her prior level of function. Additional exercises will be introduced and as well as a comprehensive home exercise program upon discharge, if needed, ?to ensure carryover of functional gains achieved in the clinic. This treatment plan has been reviewed and agreement upon by the patient.
== END 2023-07-08 09:17 | disposition still patient (30) ==
LOC: CHSOT 15:50
DX: G56.21 Lesion of ulnar nerve, right upper limb (principal)
CPT/HCPCS: 97110; 97140; 97166; 97168; 97530

== ENCOUNTER 2023-07-18 09:21 | Outpatient (RCR) | payer OTHER, SELFPAY ==
--- NOTE | 2023-07-18 15:45 | OTOPDC ---
Assessment and note entered by Marycarmen Arevalo OT Evaluation Information Assessment Status Discharge Assessment Status Progress Diagnosis Ulnar neuropathy of right upper extremity Diagnosis Ulnar neuropathy of R UE Onset 05/16/2023 Onset 04/08/2023 Subjective Information The patient stated he feels that his wrist is weak but is motivated to improve his function and strength. The patient reports that over the weekend he rested his arm in his sling for so long that his elbow got numb and tingly and became painful. The patient stated when he does not have his R elbow resting on a hard surface he does not have any pain. Reported Pain Level Pain Score 3: Self Report Pain Score 3,3: Self Report Additional Pain Score Comments Pt. reports that his R UE has been sore, but not painful. Assessment OT Clinical Summary The patient demonstrates significant progress in UE strength, graduate research assistant/pinch strength, pain, and edema since the start of care demonstrating increased function of R hand with ability to close hand completely, graduate research assistant and hold items for ADLs, and lift items for daily tasks. The patient continues to demonstrate limited sensation and difficulty with tingling in R hand ring and small digits. The patient is discharged this date to meeting goals and with UE HEP to continue to maintain strength and endurance that he achieved during therapy services. OT Clinical Summary The patient demonstrates significant progress in edema, graduate research assistant strength, pinch strength, AROM, UE strength, scar build up, and pain which allow him to perform ADLs without discomfort or restrictions . The patient continues to demonstrates deficits in UE AROM of elbow and wrist, UE strength in elbow and wrist, edema management, scar buildup, and graduate research assistant/pinch strength that are all needed for him to return to work and provide income for his family. The patient to continues to require skilled OT to address these deficits. Plan of Care OT Services Indicated No OT Services Indicated Yes
--- NOTE | 2023-08-19 12:56 | BUOTOPEVAL ---
Assessment and note entered by Marycarmen Arevalo, OT Evaluation Information Assessment Status Re-evaluation Diagnosis Ulnar neuropathy of R UE Onset 05/16/2023 Subjective Information The patient reports 0/10 pain at time of evaluation due to not using his arm at the moment but reoprts that the pain can get to 8-9/10 if there is pressure on the elbow or if he is pulling or pushing something with that arm. The patient reports pain in R shoulder as well that he will be getting surgery on in September. The patient reports 6/10 pain during weighted ball exercises at the time of evaluation. The patient reports moderate tingling in elbow into his hand at small finger. The patient stated his MD told him that the recovery time is at least a year and that his feeling will not get better quickly. The patient stated that he sometimes drops things with ring and small fingers depending what he is doing. Reported Pain Level Pain Score 0: Self Report Pain Score 3: Self Report Pain Score 3,3: Self Report Additional Pain Score Comments Pt. reports that his R UE has been sore, but not painful. Assessment OT Clinical Summary The patient is a 63 year old male who was referred to outpatient OT due to R ulnar neuropathy which affects that patient's ability to perform ADLs without pain. The patient demonstrates severe pain during activity in R elbow and moderately impaired UE weakness which affects independence and discomfort in R UE. Prior to surgery, the patient did not experience any pain or strength deficits, the patient requires skilled OT to address pain and strength in order to improve independence during daily tasks. Plan of Care Interventions Therapeutic Exercise,Manual Therapy,Neuro Re- education,Therapeutic Activities,Hot Pack/Cold Pack,Electrical Stimulation,Sensory Integrative Techn,Self-Care/Home Management,Ultrasound OT Services Indicated Yes Treatment Frequency and 3x/week for 10 visits. Duration These treatments will address the objective and functional deficits as defined above. The patient will be advanced safely and appropriately in order for the patient to progress towards his/her prior level of function. Additional exercises will be introduced and as well as a comprehensive home exercise program upon discharge, if needed, ?to ensure carryover of functional gains achieved in the clinic. This treatment plan has been reviewed and agreement upon by the patient.
--- NOTE | 2023-09-16 12:49 | BUOTOPEVAL ---
Assessment and note entered by Marycarmen Arevalo, OT Evaluation Information Assessment Status Progress Diagnosis Ulnar neuropathy of R UE Onset 05/16/2023 Subjective Information The patient reports that the pain is at a 4/10 during daily activities and makes it difficult to manage tasks without discomfort. The patient reports that he thinks that therapy has been helping but wants to continue to improve strength and pain. Reported Pain Level Pain Score 0: Self Report Pain Score 3: Self Report Pain Score 0: Self Report Pain Score 0: Self Report Pain Score 0: Self Report Pain Score 0: Self Report Pain Score 0: Self Report Pain Score 0: Self Report Pain Score 0: Self Report Pain Score 0: Self Report Pain Score 3: Self Report Pain Score 3,3: Self Report Additional Pain Score Comments Pt. reports that his R UE has been sore, but not painful. Assessment OT Clinical Summary The patient demonstrates good progress in donor floor technician strength, UE strength, and pain at this time which has lead to increased independence and decreased discomfort in daily tasks. The patient demonstrates continued deficits in elbow pain, elbow extension strength and donor floor technician strength which affect return to prior daily activities without increased pain. The patient requires continued skilled OT to address elbow pain, to implement manual techniques to improve pain. Plan of Care Interventions Therapeutic Exercise,Manual Therapy,Neuro Re- education,Therapeutic Activities,Hot Pack/Cold Pack,Electrical Stimulation,Sensory Integrative Techn,Self-Care/Home Management OT Services Indicated Yes Treatment Frequency and 2x/week for 10 visits. Duration These treatments will address the objective and functional deficits as defined above. The patient will be advanced safely and appropriately in order for the patient to progress towards his/her prior level of function. Additional exercises will be introduced and as well as a comprehensive home exercise program upon discharge, if needed, ?to ensure carryover of functional gains achieved in the clinic. This treatment plan has been reviewed and agreement upon by the patient.
--- NOTE | 2023-10-10 15:15 | OTOPPROG ---
Assessment and note entered by Marycarmen Arevalo, OT Evaluation Information Assessment Status Discharge Diagnosis Ulnar neuropathy of R UE Onset 05/16/2023 Subjective Information The patient reports moderate numbness/tingling in R hand at digits 4-5. The patient reports he has minimal pain reported as tender in his R elbow at medial epicondyle, 2-3/10 pain at times but most of the time is at 0/10. The patient has a hard maintaining a senior controls analyst on soap when bathing that he used to not have an issue with prior to injury. Assessment OT Clinical Summary The patient demonstrates significant progress in elbow pain, UE strength, and senior controls analyst/pinch strength leading to improvement in daily tasks without discomfort. The patient's R UE senior controls analyst strength is not at previous strength following injury but the patient has made significant and functional improvement in R UE. The patient is discharged this date with HEP to maintain strength and continue to improve function of R UE until patient 's shoulder surgery next week. The patient demonstrates good carryover of exercises and knowledge of continued progress. Plan of Care OT Services Indicated No These treatments will address the objective and functional deficits as defined above. The patient will be advanced safely and appropriately in order for the patient to progress towards his/her prior level of function. Additional exercises will be introduced and as well as a comprehensive home exercise program upon discharge, if needed, ?to ensure carryover of functional gains achieved in the clinic. This treatment plan has been reviewed and agreement upon by the patient.
--- NOTE | 2023-10-10 15:15 | OTOPDC ---
Assessment and note entered by Marycarmen Arevalo, OT Evaluation Information Assessment Status Discharge Diagnosis Ulnar neuropathy of R UE Onset 05/16/2023 Subjective Information The patient reports moderate numbness/tingling in R hand at digits 4-5. The patient reports he has minimal pain reported as tender in his R elbow at medial epicondyle, 2-3/10 pain at times but most of the time is at 0/10. 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 Reported Pain Level Pain Score 0: Self Report Assessment OT Clinical Summary The patient demonstrates significant progress in elbow pain, UE strength, and film composer/pinch strength leading to improvement in daily tasks without discomfort. The patient's R UE film composer strength is not at previous strength following injury but the patient has made significant and functional improvement in R UE. The patient is discharged this date with HEP to maintain strength and continue to improve function of R UE until patient 's shoulder surgery next week. The patient demonstrates good carryover of exercises and knowledge of continued progress. Plan of Care OT Services Indicated No
== END 2023-10-10 16:31 | disposition home or self-care (01) ==
LOC: CHSOT 09:21
DX: G56.21 Lesion of ulnar nerve, right upper limb (principal)
CPT/HCPCS: 97014; 97110; 97140; 97165; 97168; 97530; 97535; G0283

== ENCOUNTER 2023-10-16 00:08 | Day surgery (SDC) | payer OTHER, SELFPAY ==
[2023-10-13 09:16] VITALS: BMI 37.0
--- NOTE | 2023-10-13 09:24 | PC.NURSE ---
Report to the Outpatient Waiting Room, entrance under the green pavilion located off [facility], at time 9:00 on date 10/16/23. Planned Procedure Time: 11:00. Time changes happen often and if your time is changed the preop area will call you the afternoon before. - You and your visitor will be asked to self-screen and do not enter if you have any COVID symptoms. - A mask is optional within the hospital at this time. Patients may have clear liquids (water, carbonated beverages, clear teas, apple juice) until 3 hours prior to surgery (8:00) with a maximum of 20 ounces. - No food from midnight until time of surgery Take the following medications with a SIP of water the morning of surgery: ESCITALOPRAM DO NOT STOP ANY OF YOUR OTHER PRESCRIPTION MEDICATIONS PRIOR TO SURGERY ?EXCEPT THE FOLLOWING Medications to discontinue per physician: VITAMINS Date to take last dose: NO MORE UNTIL AFTER SURGERY PT HAS ALREADY STOPPED MELOXICAM Please no make-up, nail upper sorbian, hairspray, perfume, deodorant, or body powder the day of surgery. No jewelry (including any body piercings) or valuables the day of surgery, leave them at home. Please take a shower or bath the night before, or the morning of, surgery with an antibacterial soap. Wear comfortable, loose fitting clothing. - Jewelry must be removed prior to entering the operating room. Rings and piercings that are not removed may be cut off. - The hospital will not accept responsibility for valuables. - Please leave all valuables, including medications, at home the day of surgery. If you are going home after surgery, a licensed solid waste truck driver must drive you home. - NO public transportation without another adult if you receive anesthesia. - We recommend that an adult stay with you for 24 hours following discharge. - We also recommend that you do not drive, make important decision, drink alcoholic beverages, or take any drugs that were not prescribed by your health care provider for at least 24 hours after your discharge time. Follow any additional instructions given to you from your surgeon. If you or anyone in your household have experienced Covid symptoms in the past week, please notify your surgeon or the nurse liaison at the phone number below for possible testing. Telephone instructions given to PT - HOLA WATSON and asked if any additional questions and then verbalized understanding. Patient advised to call surgeon office or pre surgery nurse liaison [phone] if any additional questions.
--- NOTE | 2023-10-15 10:29 | WPDANESEPPF ---
Anes - Initial Pre Proc Eval Procedure: Operation Date: 10/16/23 11:00 Proposed Procedures p Right Shoulder Arthroscopy with Labral Debridement, Subacromial Decompression - Jose Hawkins MD Date/Time: 10/15/23 10:29 Surgeon: Jose Hawkins MD Pre Op Diagnosis: slap tear right shoulder, impingement syndrome Patient Data Age: 63 Gender: M Height: 1.85 m Weight: 127.5 kg Allergies Allergy/AdvReac Type Severity Reaction Status Date / Time No Known Allergies Allergy Verified 10/16/23 09:52 Home Medications Medication Instructions Recorded Confirmed Type meloxicam 15 mg tablet 15 mg PO QAM 06/08/21 10/13/23 History [id number]-mn-[id number] 300 mcg-K 60 1 tablet PO DAILY 09/11/23 10/13/23 History mcg-lycop 600 mcg-lutein 300 mcg tablet (Men 50 Plus Multivitamin) lisinopril 20 mg tablet 20 mg PO DAILY #30 tabs 10/10/23 10/13/23 Rx escitalopram oxalate 20 mg tablet 20 mg PO DAILY #30 tabs 10/13/23 10/16/23 Rx rosuvastatin 10 mg tablet 10 mg PO DAILY #30 tabs 10/13/23 10/16/23 Rx hydrocodone 5 mg-acetaminophen 325 1 - 2 tablet PO Q4-6H PRN pain #30 10/16/23 Rx mg tablet tabs Patient hx anesthesia problems: none Family hx anesthesia problems: none Results Review: All pre-operative results and documents have been reviewed as part of the pre-operative evaluation. [facility] Past Medical History Medical History Depression Essential (primary) hypertension Hyperlipidemia Hypertension Major depressive disorder, recurrent, mild Osteoarthritis Ulnar neuropathy of right upper extremity Surgical History Surgical History H/O sinus surgery 1996 History of carpal tunnel release with Guyon's tunnel release, nerve transposition, right arm April 07, 2023 History of left knee surgery 1980 & 1975 - Arthroscopic History of repair of anterior cruciate ligament of right knee (~1995) History of throat surgery (~1993) Cyst Excision History of total left knee replacement (~11/27/21) Family History Family History Father Family history of malignant neoplasm Mother Breast cancer Arthritis Sibling Cerebrovascular accident Other Family history of cardiovascular disease HLD (hyperlipidemia) Hypertension Social History Social History Smoking status: Former smoker Tobacco type: cigarettes Second hand tobacco smoke exposure: No Smoking end date: 03/01/23 Additional smoking assessment comments: 2PPD X 20 YRS, QUIT, THEN 0.5 PPD X 3 YRS Alcohol intake: current Drinks per week: 10 Alcohol use details: 15/WEEK WHEN SMOKING - STATES NOW 2/MONTH Substance use: never Substance use type: does not use Other substance usage details: Marijuana over a year ago Lack of Transportation: No Lack of Food: Never True Current Housing: I Have Housing Concerned About Future Housing: No Difficulty Paying for Meds: No Currently Unemployed: No Difficulty w/ Childcare or Family Care: No Living arrangements: with family Occupation/Education: occupation 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 [employer] Gender identity (if verbalized by the patient): Male Sexual Orientation (if Verbalized by the Patient): Straight or Heterosexual Spiritual care concerns: No Anes - Eval Final PreProcedure Day of Procedure 10/15/23 10:29 Patient weight: obese Heart: regular rate and rhythm Lungs: clear to auscultation Airway: Mallampati scale class II Neurological: alert and oriented Last oral intake: >/= 8 hours ASA classification: III Emergent: no Anesthetic plan: proceed Anesthesia type and monitoring: general ETT and standard monitoring Results Review: All pre-operative results and documents have been reviewed as part of the pre-operative evaluation. I
[2023-10-16] VITALS (8 sets, daily range): BP systolic 126–160; BP diastolic 68–95; PULSE 74–95; RESP 16–20; TEMP 36.1–37.1; O2SAT 91–97
[2023-10-16] MEDS: LACTATED RINGERS 1,000 ML 30 ML IV CONT ×2 (09:15→13:22)
[2023-10-16] MEDS: ACETAMINOPHEN 500 MG TABLET 1000 MG PO (09:30)
[2023-10-16] MEDS: KETOROLAC 15 MG/ML VIAL (*BKC) IV PUSH (09:30)
--- NOTE | 2023-10-16 09:54 | WPDANESPNB ---
Anes - Peripheral Nerve Block Date/Time: 10/16/23 09:54 I have discussed with the patient/family/POA the placement of a peripheral nerve block for post-operative pain management, including associated risks, benefits, complications, and side effects. Alternative methods of post-operative analgesia were detailed. Questions were solicited and answers provided to the satisfaction of the patient/family/POA. Time-Out: A pre-procedural Time-Out was completed immediately before starting the procedure and confirmed: Patient Identification, Site, Procedure, Patient Position and the Availability of Requisite Equipment. Clinical Indications: Acute post-operative pain management requested by the operative surgeon. Nerve Block Insertion Note Anes-nerve block: interscalene right Patient position: supine Skin prep: chlorhexidine Needle: 22 gauge, stimulating, insulated echogenic needle. Needle length: 50 mm Technique: ultrasound Injectate: bupivacaine 0.5% with epi 5 mcg/ml (20cc- no epi) Observations: tolerated well Complications: none Procedure start time:: 1015 Procedure end time:: 101
--- NOTE | 2023-10-16 10:17 | WPDHPUPDATE1 ---
History and Physical Update Update Date/Time: 10/16/23 10:17 History and Physical has been reviewed, including an updated exam of the patient. There are NO changes in the patient's condition. Risks, benefits, and alternatives have been discussed and questions answered. Patient agrees to proceed with procedure.
[2023-10-16] MEDS: ceFAZolin 3 GM/D5W 100 ML 100 ML IVPB (10:20)
[2023-10-16] MEDS: EPINEPHrine HCL INJ 1 MG/ML AMPUL IRRIGATION (11:22)
--- NOTE | 2023-10-16 13:31 | SUR.PHASEI ---
1328: Simple mask removed.
--- NOTE | 2023-10-16 13:39 | P.OP_ITS ---
Procedure Note - Detailed Date of Procedure 10/16/23 Pre-op Diagnosis slap tear right shoulder, impingement syndrome Post-op Diagnosis Other (Right shoulder 1. Rotator cuff tear 2. Subacromial impingement 3. Degenerative labral tear) Procedure Performed Right shoulder 1. Arthroscopic rotator cuff repair 2. Arthroscopic subacromial decompression 3. Arthroscopic labral debridement Surgeon Jose Hawkins MD Chemical Plant Worker Teri Montano PA-C Anesthesia General and Regional ( interscalene block) Findings Upper border subscapularis tear repaired with a suture anchor. High grade partial supraspinatus tear, completed and repaired with a bone tunnel. Subacromial decompression. Debridement of extensive degenerative labral/ SLAP tear with remnants of the biceps rupture debrided as well. Description of Procedure Preoperative antibiotics were given. An interscalene block was administered in the preoperative area. The patient was bought brought to the operating room. A general anesthetic was administered. The patient was carefully positioned in the beach chair position. The head and neck were carefully positioned. The non operative extremity was also carefully positioned. The shoulder was prepped and draped in the usual sterile fashion. Examination was performed. Standard posterior and anterior arthroscopic portals were established. Inflow achieved with the arthroscopic pump using saline and epinephrine. The glenohumeral joint was carefully inspected. The glenoid labrum showed extensive tearing. This included the SLAP area as well as posterior and anterior. Significant loose flaps around the superior and anterior joint consistent with the previous biceps tear were also debrided. Biceps appeared to be tenodesed in the groove. The upper subscapularis was torn. It was freed of some anterior scarring. It was easily mobile and reducible to the footprint. Horizontal mattress and a simple suture at the upper border were inserted into a SwiveLock anchor at the lesser tuberosity footprint area. This reduced the subscapularis anatomically. The supraspinatus had a high-grade 50% articular side tear. The tissue was fairly degenerative. To which was moderate. It was felt that this was more extensive than could be treated with a simple collagen implant. It was elected to complete the tear and repaired with a single bone tunnel. Three sutures were passed into the cuff using a spinal needle technique and suture shuttling from inside the joint. The sutures were tied arthroscopically. This allowed for more anatomic reduction of the supraspinatus. Inspection back in the joint showed the reduction to indeed be very anatomic and secure to the footprint. A complete bursectomy was performed. [A modest acromioplasty was performed.] The arthroscopic instruments were removed. The wounds were closed with 4-0 Monocryl subcuticular suture and steri strips. There were no complications. A sling was applied and the patient brought to the recovery room. Physician assistant manager bilingual, Teri Montano PA-C, required for surgery; including patient positioning, draping, arthroscopic camera operation, maintaining instrument position, suture retrieval, wound closure, and dressing and sling placement. Implants Arthrex SwiveLock 4.5 mm anchor. Estimated Blood Loss 20 Pathology None sent Complications No immediate complications Condition Stable Disposition PACU [facility] Billing Surgery - Charge Forward: Surgery Billing
== END 2023-10-16 15:00 | disposition home or self-care (01) ==
PROVIDERS: PCP Family Medicine; Visit Provider Orthopaedic Surgery
PROC: (CPT 29805; principal; 2023-10-16 11:00)
DX: M75.81 Other shoulder lesions, right shoulder (principal); M75.41 Impingement syndrome of right shoulder; I10 Essential (primary) hypertension; E78.5 Hyperlipidemia, unspecified; F33.0 Major depressive disorder, recurrent, mild; M19.90 Unspecified osteoarthritis, unspecified site; G89.18 Other acute postprocedural pain; E66.9 Obesity, unspecified; Z68.37 Body mass index [BMI] 37.0-37.9, adult; Z79.891 Long term (current) use of opiate analgesic; Z98.890 Other specified postprocedural states; Z87.891 Personal history of nicotine dependence; Z82.49 Family history of ischemic heart disease and other diseases of the circulatory system; Z80.3 Family history of malignant neoplasm of breast
CPT/HCPCS: 64415; 29827; 29826; A4565; A9270; C1713; J0171; J0690; J1100; J1596; J1885; J2250; J2371; J2405; J2704; J3010; J7120

== ENCOUNTER 2023-11-12 07:48 | Outpatient (RCR) | payer OTHER, SELFPAY ==
[2023-11-12 07:50] VITALS: BP_SYST 105
--- NOTE | 2023-11-12 08:53 | OPREHPOC ---
Outpatient Therapy Plan of Care This is a Multidisciplinary Plan of Care that may contain components documented by all disciplines (PT, OT, and ST.) PT Problem 1 PT Problem #1 Knowledge Deficit PT Goal 1 Goal 1. independent and compliant with HEP Target Visit 6 PT Problem 2 PT Problem #2 Pain PT Goal 1 Goal 1. 2/10 pain or less in the R shoulder at worst in the past week Target Visit 12 PT Problem 3 PT Problem #3 Impaired Range of Motion PT Goal 1 Goal 1. passive R shoulder flexion to improve to 160 degrees 2. passive R shoulder abduction to improve to 130 degrees or better 3. passive R shoulder ER to 85 degrees or better 4. passive R shoulder IR to 70 degrees or better Target Visit 12 PT Goal 2 Goal 1. patient to achieve active shoulder flexion to 155 degrees or better 2. patient to achieve functional IR reach to the lumbar spine 3. patient to achieve functional ER reach to the shirt collar PT Problem 4 PT Problem #4 Impaired Strength PT Goal 1 Goal 1. patient to display 3+/5 or better R shoulder strength overall 2. patient to display 4/5 or better R elbow strength Target Visit 12 PT Goal 2 Goal 1. patient to display 5/5 R shoulder strength 2. patient to display 5/5 R elbow strength PT Problem 5 PT Problem #5 Impaired Functional Mobil PT Goal 1 Goal 1. quick dash to display 50% or less functional deficits Target Visit 12 PT Goal 2 Goal 1. quick dash to display less than 10% functional deficits 2. patient to squat and lift 50lbs from floor to waist 3. patient to lift 20lbs med ball to shoulder and overhead level shelf
--- NOTE | 2023-11-12 08:53 | PTOPEVAL1 ---
Assessment and note entered by JT File, PT Evaluation Information Assessment Status Evaluation Diagnosis s/p R RTC repair, R labral debridement, R SAD Onset 10/16/23 Subjective Information patient reports he injured his R shoulder at work on 10/02/22. he had several bouts of therapy on the R shoulder. he also had an injury to the elbow /wrist/hand of the R UE. he had therapy on this as well prior to have surgery on the R shoulder. he is now 1 day from being 4 weeks post op of the R shoulder. he had a RTC repair, R SAD, and R labral debridement. he was instructed that he is to improve his motion prior to beginning any strengthening. however, there is no post op protocol in his chart today. he does have some pain in the R shoulder this morning, but overall has not been bad. he reports he has been doing pendulums and table slides for HEP at home. 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 he reports to return to work he has to be able to drive all day and move pallets that are up to 2500lbs. Reported Pain Level Pain Score 4: Self Report Assessment PT Clinical Summary mr shafer presents to skilled PT services for evaluation and treatment s/p R RTC repair. he presents with deficits in rom, strength, and functional R UE use due to post operative tightness and precautions. to return to work, he must be able to drive all day using both hands on the wheel, and push/pull a pallet of up to 2500lbs . continued skilled PT is indicated to improve his objective/functional deficits to allow patient to return to prior level work and functional activity performance. Plan of Care Interventions Electrical Stimulation,Hot Pack/Cold Pack,Manual Therapy,Neuro Re-education,Patient/Caregiver Educati,Therapeutic Activities,Therapeutic Exercise PT Services Indicated Yes Treatment Frequency and 3x weekly for 12 visits Duration These treatments will address the objective and functional deficits as defined above. The patient will be advanced safely and appropriately in order for the patient to progress towards his/her prior level of function. Additional exercises will be introduced and as well as a comprehensive home exercise program upon discharge, if needed, ?to ensure carryover of functional gains achieved in the clinic. This treatment plan has been reviewed and agreement upon by the patient.
[2023-11-20 07:47] VITALS: BP_SYST 105
--- NOTE | 2023-11-20 08:44 | OPREHPOC ---
Outpatient Therapy Plan of Care This is a Multidisciplinary Plan of Care that may contain components documented by all disciplines (PT, OT, and ST.) PT Problem 1 PT Problem #1 Knowledge Deficit PT Goal 1 Goal 1. independent and compliant with HEP Target Visit 6 Progress Met PT Problem 2 PT Problem #2 Pain PT Goal 1 Goal 1. 2/10 pain or less in the R shoulder at worst in the past week Target Visit 12 Progress Not Met PT Problem 3 PT Problem #3 Impaired Range of Motion PT Goal 1 Goal 1. passive R shoulder flexion to improve to 160 degrees 2. passive R shoulder abduction to improve to 130 degrees or better 3. passive R shoulder ER to 85 degrees or better 4. passive R shoulder IR to 70 degrees or better Target Visit 12 Comment progressing PT Goal 2 Goal 1. patient to achieve active shoulder flexion to 155 degrees or better 2. patient to achieve functional IR reach to the lumbar spine 3. patient to achieve functional ER reach to the shirt collar PT Problem 4 PT Problem #4 Impaired Strength PT Goal 1 Goal 1. patient to display 3+/5 or better R shoulder strength overall 2. patient to display 4/5 or better R elbow strength Target Visit 12 PT Goal 2 Goal 1. patient to display 5/5 R shoulder strength 2. patient to display 5/5 R elbow strength PT Problem 5 PT Problem #5 Impaired Functional Mobil PT Goal 1 Goal 1. quick dash to display 50% or less functional deficits Target Visit 12 PT Goal 2 Goal 1. quick dash to display less than 10% functional deficits 2. patient to squat and lift 50lbs from floor to waist 3. patient to lift 20lbs med ball to shoulder and overhead level shelf
--- NOTE | 2023-11-20 08:44 | PTOPPROGNS ---
Assessment and note entered by JT File, PT Evaluation Information Assessment Status Progress Diagnosis s/p R RTC repair, R labral debridement, R SAD Onset 10/16/23 Subjective Information patient reports he is a bit sore today in the R shoulder. he reports he is not taking any meds specifically for the R shoulder. he reports maybe it is a bit more sore from back to back days of therapy this week. he reports he has a follow up with the MD tomorrow. he is 5 weeks post op today. Assessment PT Clinical Summary mr. shafer presents to skilled PT services 1 day prior to his follow up with the surgeon. he is 5 weeks post op today. treatment in skilled PT has consisted of modalities for increased tissue extensibility/pain control, and passive rom of the R shoulder. today he has achieved passive rom of the R shoulder as listed: flexion - 130 degrees, abduction - 105 degrees, ER - 75 degrees, IR - 55 degrees. all passive rom has been performed within patient tolerance. he continues to guard the shoulder with eccentric lowering in passive rom back to anatomical position. continued treatment is indicated to assist patient in achievement of goals and return to work performance/duties. Plan of Care Interventions Electrical Stimulation,Hot Pack/Cold Pack,Manual Therapy,Neuro Re-education,Patient/Caregiver Educati,Therapeutic Activities,Therapeutic Exercise PT Services Indicated Yes Treatment Frequency and continue per initial evaluation/POC Duration These treatments will address the objective and functional deficits as defined above. The patient will be advanced safely and appropriately in order for the patient to progress towards his/her prior level of function. Additional exercises will be introduced and as well as a comprehensive home exercise program upon discharge, if needed, ?to ensure carryover of functional gains achieved in the clinic. This treatment plan has been reviewed and agreement upon by the patient.
--- NOTE | 2023-12-01 10:03 | PTOPEVAL1 ---
Assessment and note entered by Earl Chapman Evaluation Information Assessment Status Progress Diagnosis s/p R RTC repair, R labral debridement, R SAD Onset 10/16/23 Subjective Information patient reports he is a bit sore today in the R shoulder. he reports he is not taking any meds specifically for the R shoulder. he reports maybe it is a bit more sore from back to back days of therapy this week. he reports he has a follow up with the MD tomorrow. he is 5 weeks post op today. Assessment PT Clinical Summary mr. shafer presents to skilled PT services 1 day prior to his follow up with the surgeon. he is 5 weeks post op today. treatment in skilled PT has consisted of modalities for increased tissue extensibility/pain control, and passive rom of the R shoulder. today he has achieved passive rom of the R shoulder as listed: flexion - 130 degrees, abduction - 105 degrees, ER - 75 degrees, IR - 55 degrees. all passive rom has been performed within patient tolerance. he continues to guard the shoulder with eccentric lowering in passive rom back to anatomical position. continued treatment is indicated to assist patient in achievement of goals and return to work performance/duties. Plan of Care Interventions Electrical Stimulation,Hot Pack/Cold Pack,Manual Therapy,Neuro Re-education,Patient/Caregiver Educati,Therapeutic Activities,Therapeutic Exercise PT Services Indicated Yes Treatment Frequency and 3x/week x 12 visits Duration These treatments will address the objective and functional deficits as defined above. The patient will be advanced safely and appropriately in order for the patient to progress towards his/her prior level of function. Additional exercises will be introduced and as well as a comprehensive home exercise program upon discharge, if needed, ?to ensure carryover of functional gains achieved in the clinic. This treatment plan has been reviewed and agreement upon by the patient.
--- NOTE | 2023-12-02 09:24 | BUOTOPEVAL ---
Assessment and note entered by Kristyn Joshua, OT Evaluation Information Assessment Status Evaluation Diagnosis Ulnar neuropathy of right upper extremity Onset 10/24/2023 Subjective Information Client reports no pain from elbow<>digits, however , did state that he is having difficulty with fasteners due to sensation deficits in right hand (primarily in 4th and 5th digit). He reports having difficulty with daily tasks due to weakness and limited ROM in RUE. Per client, he has not attempted to complete home management tasks since having right shoulder surgery. Reported Pain Level Pain Score 0: Self Report Pain Score 2: Self Report Pain Score 2: Self Report Pain Score 2: Self Report Pain Score 3: Self Report Pain Score 0: Self Report Pain Score 0: Self Report Pain Score 4: Self Report Assessment OT Clinical Summary Client is a 63 year old males who was referred to outpatient OT due to recent ulnar neuropathy of right upper extremity resulting with weakness, decreased endurance, limited active ROM, and sensation deficits. The client was previously seen in for ulnar nerve injury in the outpatient setting, but reports that his deficits increased since shoulder rotator cuff surgery. Prior to injury, client was independent was all self care and home management tasks. 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 The client requires skilled OT services to address RUE AROM, strength, endurance, and sensation deficits in order to increase independence with ADLs, IADLs, and skills required for RTW. Plan of Care Interventions Therapeutic Exercise,Manual Therapy,Neuro Re- education,Therapeutic Activities,Hot Pack/Cold Pack,Electrical Stimulation,Self-Care/Home Management,Ultrasound OT Services Indicated Yes Treatment Frequency and 2-3x week/10 visits Duration These treatments will address the objective and functional deficits as defined above. The patient will be advanced safely and appropriately in order for the patient to progress towards his/her prior level of function. Additional exercises tristen
[2023-12-11 08:03] VITALS: BP_SYST 169
--- NOTE | 2023-12-11 08:52 | OPREHPOC ---
Outpatient Therapy Plan of Care This is a Multidisciplinary Plan of Care that may contain components documented by all disciplines (PT, OT, and ST.) PT Problem 1 PT Problem #1 Knowledge Deficit PT Goal 1 Goal 1. independent and compliant with HEP Target Visit 6 Progress Met PT Problem 2 PT Problem #2 Pain PT Goal 1 Goal 1. 2/10 pain or less in the R shoulder at worst in the past week Target Visit 24 Progress Not Met PT Problem 3 PT Problem #3 Impaired Range of Motion PT Goal 1 Goal 1. passive R shoulder flexion to improve to 160 degrees 2. passive R shoulder abduction to improve to 130 degrees or better 3. passive R shoulder ER to 85 degrees or better 4. passive R shoulder IR to 70 degrees or better Target Visit 12 Progress Met Comment . PT Goal 2 Goal 1. patient to achieve active shoulder flexion to 155 degrees or better 2. patient to achieve functional IR reach to the lumbar spine 3. patient to achieve functional ER reach to the shirt collar Target Visit 24 PT Problem 4 PT Problem #4 Impaired Strength PT Goal 1 Goal 1. patient to display 3+/5 or better R shoulder strength overall 2. patient to display 4/5 or better R elbow strength Target Visit 12 Progress Met Comment . PT Goal 2 Goal 1. patient to display 5/5 R shoulder strength 2. patient to display 5/5 R elbow strength Target Visit 24 PT Problem 5 PT Problem #5 Impaired Functional Mobil PT Goal 1 Goal 1. quick dash to display 50% or less functional deficits Target Visit 24 Comment continue PT Goal 2 Goal 1. quick dash to display less than
--- NOTE | 2023-12-11 08:52 | PTOPREEVAL ---
Assessment and note entered by Isabelle Gonzalez DPT Evaluation Information Assessment Status Re-evaluation Diagnosis s/p R RTC repair, R labral debridement, R SAD Onset 10/16/23 Subjective Information patient reports that he feels his shoulder is progressing well. he states when he first gets moving the anterior shoulder is sore. he reports no difficulty with sleeping. he reports getting dressed has greatly improved. he reports HEP is going well. RTMD on 12/26/23 Reported Pain Level Pain Score 1: Self Report Pain Score 0: Self Report Pain Score 0: Self Report Pain Score 0: Self Report Assessment PT Clinical Summary Mr. Truong has attended 12 visits of skilled PT and is progressing well. He demonstrates 150 deg of R shoulder flexion and 3+/5 strength of the R shoulder. He has not been progress with strengthening of the R shoulder at this time due to post surgical restrictions. He reports no disturbance with sleeping and improved ability to complete ADLs. He is currently off work. He returns to MD on 12/26/23. He will benefit from continued skilled PT to address remaining impairments and return to work. Plan of Care Interventions Electrical Stimulation,Hot Pack/Cold Pack,Manual Therapy,Neuro Re-education,Patient/Caregiver Educati,Therapeutic Activities,Therapeutic Exercise PT Services Indicated Yes Treatment Frequency and continue 3x weekly for 12 visits or per MD Duration recommendations These treatments will address the objective and functional deficits as defined above. The patient will be advanced safely and appropriately in order for the patient to progress towards his/her prior level of function. Additional exercises will be introduced and as well as a comprehensive home exercise program upon discharge, if needed, ?to ensure carryover of functional gains achieved in the clinic. This treatment plan has been reviewed and agreement upon by the patient.
--- NOTE | 2023-12-17 11:20 | OTOPPROG ---
Assessment and note entered by Marycarmen Arevalo, OT Evaluation Information Assessment Status Progress Subjective Information The patient reports that he has numbness in his 4- 5 digits on R UE and limited strength in those digits. The patient stated that he does not notice much difference in R UE from shoulder distally from the start of care due to thinking he is where he will be when it comes to function of R UE. He reports he feels stronger in the lateral side of his hand but not on the medial side of hand due to ulnar nerve innervation. 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 The patient demonstrates good progress toward goals with increased ROM, pharmacy resource tech strength and pinch strength. The patient continues to require skilled OT to address wrist strength, pharmacy resource tech strength and supination ROM in order to improve function for ADLs and work tasks. Plan of Care Interventions Therapeutic Exercise,Manual Therapy,Neuro Re- education,Therapeutic Activities,Electrical Stimulation,Self-Care/Home Management,Ultrasound OT Services Indicated Yes Treatment Frequency and 2-3x/week for 10 visits. Duration These treatments will address the objective and functional deficits as defined above. The patient will be advanced safely and appropriately in order for the patient to progress towards his/her prior level of function. Additional exercises will be introduced and as well as a comprehensive home exercise program upon discharge, if needed, ?to ensure carryover of functional gains achieved in the clinic. This treatment plan has been reviewed and agreement upon by the patient.
--- NOTE | 2023-12-24 11:17 | OTOPPROG ---
Assessment and note entered by Marycarmen Arevalo, OT Evaluation Information Assessment Status Progress Subjective Information The patient reports he continues to have numbness in 4th and 5th finger. He reports his shoulder and elbow/wrist are doing well and he is making progress but does not think he will be strong enough to do old job at this time. The patient reports no pain. Assessment OT Clinical Summary The patient has made significant progress in wrist ROM, strength, pinch strength and function of R UE leading to increased independence with ADLs and work tasks. 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 The patient requires continued OT to address deficits. MD ordered 2-3x/ week for 8 weeks to continue with therapy and abide by shoulder surgeon precautions with R shoulder. Plan of Care Interventions Therapeutic Exercise,Manual Therapy,Neuro Re- education,Therapeutic Activities,Hot Pack/Cold Pack,Electrical Stimulation,Sensory Integrative Techn,Self-Care/Home Management OT Services Indicated Yes Treatment Frequency and 2-3 times per week for 8 weeks. Duration These treatments will address the objective and functional deficits as defined above. The patient will be advanced safely and appropriately in order for the patient to progress towards his/her prior level of function. Additional exercises will be introduced and as well as a comprehensive home exercise program upon discharge, if needed, ?to ensure carryover of functional gains achieved in the clinic. This treatment plan has been reviewed and agreement upon by the patient.
[2024-01-12 14:12] VITALS: BP_SYST 169
--- NOTE | 2024-01-12 15:10 | PTOPREEVAL ---
Assessment and note entered by Isabelle Gonzalez DPT Evaluation Information Assessment Status Re-evaluation Diagnosis s/p R RTC repair, R labral debridement, R SAD Onset 10/16/23 Subjective Information patient reports that the shoulder is better. he has one spot of discomfort at the front of the shoulder that is relieved with manual at times. 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 RTMD on 02/13/24. Reported Pain Level Pain Score 0: Self Report Assessment PT Clinical Summary Mr. Truong has attended 24 visits of skilled PT and is progressing well. He demonstrates 153 deg of R shoulder flexion and improving strength of the R shoulder. He reports discomfort of the anterior R shoulder with reaching overhead. He reports overall he continues to improve but does not feel he is ready to return to work. He has improved QuickDash scoring indicating improved function of the R UE. He is currently off work. He returns to MD on 01/19/24. He will benefit from continued skilled PT to address remaining impairments and return to work. Plan of Care Interventions Electrical Stimulation,Hot Pack/Cold Pack,Manual Therapy,Neuro Re-education,Patient/Caregiver Educati,Therapeutic Activities,Therapeutic Exercise PT Services Indicated Yes Treatment Frequency and continue 3x weekly for 12 visits Duration These treatments will address the objective and functional deficits as defined above. The patient will be advanced safely and appropriately in order for the patient to progress towards his/her prior level of function. Additional exercises will be introduced and as well as a comprehensive home exercise program upon discharge, if needed, ?to ensure carryover of functional gains achieved in the clinic. This treatment plan has been reviewed and agreement upon by the patient.
--- NOTE | 2024-01-21 15:43 | PTOPPROG ---
Assessment and note entered by Ivana Osborn, PT Evaluation Information Assessment Status Progress Diagnosis s/p R RCR, labral debridement, & SAD Onset 10/16/23 Subjective Information Nick Truong reports he started having increased pain in the right shoulder on the front on 01/14/24 for unknown reasons. He notes the pain has been getting worse and he talked to the doctor on and was told to hold off PT and give it the weekend to rest. He still has pain and talked to the doctor on 01/19/24 and they are seeing him in the office on 01/23/24. Assessment PT Clinical Summary Nick Truong has been seen for 26 skilled PT visits for the right shoulder since having surgery on 10/16/23. He was doing well until 01/14/24, he started having pain in the front of the right shoulder for unknown reasons. He is now having pain when he tries to turn a doorknob or lifting his arm past shoulder height. He demonstrates decreased and painful right shoulder flexion AROM, a painful arc with right shoulder flexion AROM, tenderness in the right bicep long head, and increased pain with the Speed's test indicating possible bicep pathology. He is scheduled to see his surgeon on 01/23/24 due to the recent increase in pain. He will be put on hold from PT until that appointment. Plan of Care Interventions Electrical Stimulation,Gait Training,Manual Therapy,Patient/Caregiver Educati,Therapeutic Exercise PT Services Indicated Yes Treatment Frequency and PT on hold until follow up with MD on 01/23/24. Duration These treatments will address the objective and functional deficits as defined above. The patient will be advanced safely and appropriately in order for the patient to progress towards his/her prior level of function. Additional exercises will be introduced and as well as a comprehensive home exercise program upon discharge, if needed, ?to ensure carryover of functional gains achieved in the clinic. This treatment plan has been reviewed and agreement upon by the patient.
--- NOTE | 2024-01-21 15:44 | OPREHPOC ---
Outpatient Therapy Plan of Care This is a Multidisciplinary Plan of Care that may contain components documented by all disciplines (PT, OT, and ST.) PT Problem 1 PT Problem #1 Knowledge Deficit PT Goal 1 Goal 1. independent and compliant with HEP Target Visit 6 Progress Met PT Problem 2 PT Problem #2 Pain PT Goal 1 Goal 1. 2/10 pain or less in the R shoulder at worst in the past week Target Visit 36 Progress Not Met PT Problem 3 PT Problem #3 Impaired Range of Motion PT Goal 1 Goal 1. passive R shoulder flexion to improve to 160 degrees 2. passive R shoulder abduction to improve to 130 degrees or better 3. passive R shoulder ER to 85 degrees or better 4. passive R shoulder IR to 70 degrees or better Target Visit 12 Progress Not Met Comment Regressed for goal 1 and 2. PT Goal 2 Goal 1. patient to achieve active shoulder flexion to 155 degrees or better 2. patient to achieve functional IR reach to the lumbar spine 3. patient to achieve functional ER reach to the shirt collar, met Target Visit 36 Progress Partially Met PT Problem 4 PT Problem #4 Impaired Strength PT Goal 1 Goal 1. patient to display 3+/5 or better R shoulder strength overall 2. patient to display 4/5 or better R elbow strength Target Visit 12 Progress Met Comment . PT Goal 2 Goal 1. patient to display 5/5 R shoulder strength 2. patient to display 5/5 R elbow strength Target Visit 36 Progress Not Met Comment continue PT Problem 5 PT Problem #5 Impaired Functional Mobil PT Goal 1 Goal 1. quick dash to display 50% or less functional deficits
--- NOTE | 2024-02-04 15:10 | OTOPDC ---
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 The patient did not make progress in elbow strength at this time due to bicep muscle being affected from shoulder surgery and precautions for shoulder at this time. The patient was educated on UE HEP to maintain strength and continue to address weakness in digits 4-5 of hand for further improvement, the patient does not require skilled OT at this time due to completion of HEP at home while shoulder continues to heal and improve. The patient was provided with blue theraputty and handout of exercises to continue to perform at home and was educated on the healing process of shoulder, that after shoulder function improves he could continue to make progress in elbow and hand strength. The patient is discharged due to meeting goals and plateau in bacteriology teacher strength at this time. Plan of Care OT Services Indicated No
== END 2024-02-12 19:00 | disposition still patient (30) ==
LOC: CHSPT 07:48
PROVIDERS: Visit Provider Orthopaedic Surgery
DX: Z48.89 Encounter for other specified surgical aftercare (principal)
CPT/HCPCS: 97014; 97110; 97140; 97161; 97166; 97530; G0283

== ENCOUNTER 2024-02-23 15:31 | Outpatient (RCR) | payer OTHER, SELFPAY ==
[2024-02-19 13:44] VITALS: BP_SYST 169
--- NOTE | 2024-02-23 16:33 | PTOPPROG ---
Assessment and note entered by Earl Chapman Evaluation Information Assessment Status Progress Diagnosis s/p R RTC repair, R labral debridement, R SAD Onset 10/16/23 Subjective Information Pt. enters the clinic with new order on this date. He states that he was told to avoid strengthening per M.D. He states that she still has pain described at the front of the right shoulder. He continues to describe clicking on the front side of the right shoulder with trying to elevate the arm. He states that he has been resting for a couple weeks and pain has been less intense. He reports that his goal remains to achieve normal right shoulder function. Assessment PT Clinical Summary Pt. re-enters the clinic post RCR on the right. He was on hold due to increased pain recently. He is given new orders on this date to address ROM and hold on strengthening. He continues to present with pain, however strength is progressing as expected and passive movement of the right shoulder remains full. continued skilled PT with new goals on this date is indicated in order to improve strength and ROM, as well as to reduce pain. Plan of Care Interventions Electrical Stimulation,Hot Pack/Cold Pack,Manual Therapy,Neuro Re-education,Therapeutic Activities, Therapeutic Exercise PT Services Indicated Yes Treatment Frequency and 2x/week x 10 visits Duration These treatments will address the objective and functional deficits as defined above. The patient will be advanced safely and appropriately in order for the patient to progress towards his/her prior level of function. Additional exercises will be introduced and as well as a comprehensive home exercise program upon discharge, if needed, ?to ensure carryover of functional gains achieved in the clinic. This treatment plan has been reviewed and agreement upon by the patient.
--- NOTE | 2024-02-25 15:41 | PCPTNOTE ---
On 02/25/24, the license pending SENIOR CLINICIAN, [Fior Garvin ], provided care and completed [facility] documentation on this patient. I have reviewed the license pending SENIOR CLINICIAN's documentation and agree with the findings.
--- NOTE | 2024-02-26 07:48 | PCPTNOTE ---
I reviewed the License Pending Therapist's documentation from 02/25/24 and agree with the findings.
--- NOTE | 2024-03-10 07:10 | PCPTNOTE ---
I reviewed the License Pending Therapist's documentation and agree with the findings on 03/09/24
--- NOTE | 2024-03-15 07:41 | PCPTNOTE ---
I reviewed the License Pending Therapist's documentation and agree with the findings 03/12/24.
--- NOTE | 2024-03-18 07:45 | PCPTNOTE ---
I reviewed the License Pending Therapist's documentation and agree with the findings 03/16/24.
--- NOTE | 2024-03-26 16:12 | OPREHPOC ---
Outpatient Therapy Plan of Care This is a Multidisciplinary Plan of Care that may contain components documented by all disciplines (PT, OT, and ST.) PT Problem 1 PT Problem #1 Knowledge Deficit PT Goal 1 Goal 1. independent and compliant with HEP Target Visit 6 Progress Met PT Problem 2 PT Problem #2 Pain PT Goal 1 Goal 1. 2/10 pain or less in the R shoulder at worst in the past week Target Visit 46 Progress Not Met PT Problem 3 PT Problem #3 Impaired Range of Motion PT Goal 1 Goal 1. passive R shoulder flexion to improve to 160 degrees 2. passive R shoulder abduction to improve to 130 degrees or better 3. passive R shoulder ER to 85 degrees or better. met 4. passive R shoulder IR to 70 degrees or better Target Visit 46 Progress Partially Met PT Goal 2 Goal 1. patient to achieve active shoulder flexion to 155 degrees or better 2. patient to achieve functional IR reach to the lumbar spine 3. patient to achieve functional ER reach to the shirt collar, met Target Visit 46 Progress Partially Met PT Problem 4 PT Problem #4 Impaired Strength PT Goal 1 Goal 1. patient to display 3+/5 or better R shoulder strength overall 2. patient to display 4/5 or better R elbow strength Target Visit 12 Progress Met Comment . PT Goal 2 Goal 1. patient to display 5/5 R shoulder strength 2. patient to display 5/5 R elbow strength Target Visit 46 Progress Not Met Comment continue PT Problem 5 PT Problem #5 Impaired Functional Mobil PT Goal 1 Goal 1. quick dash to display 50% or less functional deficits [place]
--- NOTE | 2024-03-26 16:13 | PTOPREEVAL ---
Assessment and note entered by JT File, PT Evaluation Information Assessment Status Re-evaluation Diagnosis s/p R RTC repair, R labral debridement, R SAD ICD-10 Condition Codes (PT) Z47.89 Onset 10/16/23 Subjective Information patient reports he was recently at the MD's office who instructed him to continue skilled PT, and begin light resistance training for strength. he was told to stay at 1lb progressions at a time. he reports he still has pain along the top of the R shoulder, especially with certain positions of shoulder flexion, abduction, and ER. he reports being still unable to reach behind back. Reported Pain Level Pain Score 0: Self Report Assessment PT Clinical Summary mr. shafer presents to skilled PT services for his 36th skilled PT visit. he continues to have pain in the R shoulder sharply at times with passive and active movement. he has been restricted to no resistance/strength training until his recent MD visit when he was told he can now return to light strengthening progression. his progress towards goals has been slow due to his regression exercises/activities per MD request. he will require continued skilled PT to begin strengthening and achieve his goals to return to prior level functional activity performance/work duties. Plan of Care Interventions Electrical Stimulation,Hot Pack/Cold Pack,Manual Therapy,Neuro Re-education,Patient/Caregiver Educati,Therapeutic Activities,Therapeutic Exercise PT Services Indicated Yes Treatment Frequency and continue skilled PT 2x weekly for 10 more visits Duration with new focus on the addition of slow progression of weight resistance training to improve shoulder strength. These treatments will address the objective and functional deficits as defined above. The patient will be advanced safely and appropriately in order for the patient to progress towards his/her prior level of function. Additional exercises will be introduced and as well as a comprehensive home exercise program upon discharge, if needed, ?to ensure carryover of functional gains achieved in the clinic. This treatment plan has been reviewed and agreement upon by the patient.
--- NOTE | 2024-04-09 17:31 | PCPTNOTE ---
I reviewed the License Pending Therapist's documentation and agree with the findings.
--- NOTE | 2024-04-20 16:05 | OPREHPOC ---
Outpatient Therapy Plan of Care This is a Multidisciplinary Plan of Care that may contain components documented by all disciplines (PT, OT, and ST.) PT Problem 1 PT Problem #1 Knowledge Deficit PT Goal 1 Goal / Goal Update 1. independent and compliant with HEP Target Visit 6 Progress Met PT Problem 2 PT Problem #2 Pain PT Goal 1 Goal / Goal Update 1. 2/10 pain or less in the R shoulder at worst in the past week Target Visit 46 Progress Met PT Problem 3 PT Problem #3 Impaired Range of Motion PT Goal 1 Goal / Goal Update 1. passive R shoulder flexion to improve to 160 degrees met 2. passive R shoulder abduction to improve to 130 degrees or better met 3. passive R shoulder ER to 85 degrees or better. met 4. passive R shoulder IR to 70 degrees or better met Target Visit 46 Progress Met PT Goal 2 Goal / Goal Update 1. patient to achieve active shoulder flexion to 155 degrees or better 2. patient to achieve functional IR reach to the lumbar spine 3. patient to achieve functional ER reach to the shirt collar, met Target Visit 46 Progress Partially Met Comment continue PT Problem 4 PT Problem #4 Impaired Strength PT Goal 1 Goal / Goal Update 1. patient to display 3+/5 or better R shoulder strength overall 2. patient to display 4/5 or better R elbow strength Target Visit 12 Progress Met Comment . PT Goal 2 Goal / Goal Update 1. patient to display 5/5 R shoulder strength 2. patient to display 5/5 R elbow strength Target Visit 46 Progress Not Met Comment continue PT Problem 5 PT Problem #5 Impaired Functional Mobil PT Goal 1
--- NOTE | 2024-04-20 16:06 | PTOPPROG ---
Assessment and note entered by Ivana Osborn, PT Evaluation Information Assessment Status Progress Diagnosis s/p R RTC repair, R labral debridement, R SAD ICD-10 Condition Codes (PT) Z47.89 Other ICD-10 Condition Codes ( Z47.89 PT) Onset 10/16/23 Subjective Information Patient reports his right shoulder is getting better. He does not have a lot of pain and when he does it is 2/10 or less. He does note frequent tightness and soreness in the right shoulder. He is not doing a lot around the house due to his lower arm. He is able to perform independent bathing and grooming though. He will see the surgeon on 04/23/24 for a follow up appointment. Assessment PT Clinical Summary Nick Truong has completed 43 skilled PT visits following a R shoulder SAD, labral debridement, and RCR. He is reporting minimal pain does feel weakness. He is able to perform bathing and grooming but has not been lifting very much weight with the right arm. He is demonstrating improved AROM and strength is progressing slowly. He continues to have deficits in right should AROM and strength in all planes. He will continue to benefit from skilled PT to further address strength deficits. Plan of Care Interventions Neuro Re-education,Patient/Caregiver Educati, Therapeutic Activities,Therapeutic Exercise PT Services Indicated Yes Treatment Frequency and 2 times per week for 12 visits Duration These treatments will address the objective and functional deficits as defined above. The patient will be advanced safely and appropriately in order for the patient to progress towards his/her prior level of function. Additional exercises will be introduced and as well as a comprehensive home exercise program upon discharge, if needed, ?to ensure carryover of functional gains achieved in the clinic. This treatment plan has been reviewed and agreement upon by the patient.
== END 2024-05-21 20:00 | disposition still patient (30) ==
LOC: CHSPT 15:31
PROVIDERS: Visit Provider Orthopaedic Surgery
DX: Z48.89 Encounter for other specified surgical aftercare (principal)
CPT/HCPCS: 97014; 97110; 97112; 97150; G0283

== ENCOUNTER 2024-05-25 14:11 | Outpatient (RCR) | payer OTHER, SELFPAY ==
[2024-05-25 14:09] VITALS: BP_SYST 169
--- NOTE | 2024-06-01 15:02 | PTOPREEVAL ---
Assessment and note entered by JT File, PT Evaluation Information Assessment Status Re-evaluation Diagnosis s/p R RTC repair, R labral debridement, R SAD ICD-10 Condition Codes (PT) Z47.89 Other ICD-10 Condition Codes ( Z47.89 PT) Onset 10/16/23 Subjective Information patient reports he is unsure of the plan to return to work. he reports he has a follow up with Shruthi on 06/04/24. he reports he will be required to complete an FCE prior to his return to work. 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 he reports he does not feel he could return to this work at this time. he reports the shoulder feels pretty good, but the elbow/hand is limiting him the most. he reports he is worried to have to reach back behind him with the R UE if he becomes unbalance while at work. Reported Pain Level Pain Score 0: Self Report Assessment PT Clinical Summary mr. shafer is a 63 yo man who presents to skilled PT services for re-evaluation and treatment of the R shoulder. he displays improved active R shoulder rom, but is still limited in functional reach behind the back. he also displays improved shoulder and elbow strength, but still lacking from goal levels. 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 he is not yet ready to return to this level of lifting, pulling, and pushing activity daily. he would benefit from continued skilled PT and strengthening of the R UE. he may benefit the most from a stent of work conditioning to prepare for return to his repetitive work lifting, pushing, pulling duties. patient will follow up with surgeon this week, and we will hold therapy continuation until instructions to continue from surgeon. Plan of Care Interventions Manual Therapy,Neuro Re-education,Patient/ Caregiver Educati,Therapeutic Activities, Therapeutic Exercise PT Services Indicated Yes Treatment Frequency and hold therapy until follow up with surgeon, then Duration continue skilled PT 3x weekly for 12 more visits ( potentially in a work conditioning capacity) These treatments will address the objective and functional deficits as defined above. The patient will be advanced safely and appropriately in order for the patient to progress towards his/her prior level of function. Additional exercises will be introduced and as well as a comprehensive home exercise program upon discharge, if needed, ?to ensure carryover of functional gains achieved in the clinic. This treatment plan has been reviewed and agreement upon by the patient.
--- NOTE | 2024-06-18 13:51 | PCPTNOTE ---
Cancelled session. Reports he is not feeling well.
--- NOTE | 2024-07-15 14:58 | PTOPPROG ---
Assessment and note entered by JT File, PT Evaluation Information Assessment Status Progress Diagnosis s/p R RTC repair, R labral debridement, R SAD ICD-10 Condition Codes (PT) Z47.89 Other ICD-10 Condition Codes ( Z47.89 PT) Onset 10/16/23 Subjective Information patient reports the shoulder feels good today. he reports the shoulder does not bother him, but he is still limited in activities due to his R forearm and wrist issues. he reports he returns to the MD tomorrow and is hoping to get approved to have the FCE completed. Assessment PT Clinical Summary mr. shafer displays increased R shoulder and elbow strength today. he reports the shoulder does not bother him hardly at all, and he is really only limited due to issues remaining with the R elbow and wrist. as of this date, he has made additional progress towards achievement of goals. patient would benefit from continued skilled PT to finish out his 2 remaining visits on this POC, and work on remaining functional and strength deficits while awaiting FCE to return to work. Plan of Care Interventions Manual Therapy,Neuro Re-education,Patient/ Caregiver Educati,Therapeutic Activities, Therapeutic Exercise PT Services Indicated Yes Treatment Frequency and continue skilled PT for 2 more visits per current Duration POC These treatments will address the objective and functional deficits as defined above. The patient will be advanced safely and appropriately in order for the patient to progress towards his/her prior level of function. Additional exercises will be introduced and as well as a comprehensive home exercise program upon discharge, if needed, ?to ensure carryover of functional gains achieved in the clinic. This treatment plan has been reviewed and agreement upon by the patient.
--- NOTE | 2024-07-23 14:36 | OPREHPOC ---
Outpatient Therapy Plan of Care This is a Multidisciplinary Plan of Care that may contain components documented by all disciplines (PT, OT, and ST.) PT Problem 1 PT Problem #1 Knowledge Deficit PT Goal 1 Goal / Goal Update 1. independent and compliant with HEP Target Visit 6 Progress Met PT Problem 2 PT Problem #2 Pain PT Goal 1 Goal / Goal Update 1. 2/10 pain or less in the R shoulder at worst in the past week Target Visit 46 Progress Met PT Problem 3 PT Problem #3 Impaired Range of Motion PT Goal 1 Goal / Goal Update 1. passive R shoulder flexion to improve to 160 degrees met 2. passive R shoulder abduction to improve to 130 degrees or better met 3. passive R shoulder ER to 85 degrees or better. met 4. passive R shoulder IR to 70 degrees or better met Target Visit 46 Progress Met PT Goal 2 Goal / Goal Update 1. patient to achieve active shoulder flexion to 155 degrees or better. not met 2. patient to achieve functional IR reach to the lumbar spine. not met 3. patient to achieve functional ER reach to the shirt collar, met Target Visit 46 Progress Partially Met PT Problem 4 PT Problem #4 Impaired Strength PT Goal 1 Goal / Goal Update 1. patient to display 3+/5 or better R shoulder strength overall 2. patient to display 4/5 or better R elbow strength Target Visit 12 Progress Met PT Goal 2 Goal / Goal Update 1. patient to display 5/5 R shoulder strength 2. patient to display 5/5 R elbow strength. not met Target Visit 46 Progress Partially Met PT Problem 5 PT Problem #5 Impaired Functional Mobil PT Goal 1 Goal / Goal Update 1. quick dash to display 50% or less functional deficits Target Visit 24 Progress Met PT Goal 2 Goal / Goal Update 1. quick dash to display less than 10% functional deficits. not met 2. patient to squat and lift 20lbs from floor to waist. met 3. patient to lift 5lbs med ball to shoulder and overhead level shelf. met Target Visit 46 Progress Not Met OT Problem 1 OT Problem #1 Knowledge Deficit OT Goal 1 Goal / Goal Update Client will demonstrate and/or verbalize understanding of RUE ROM/strengthening HEP in order to maintain or increase RUE function needed for daily and return to work tasks. 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 with right hand to increase independence with opening/closing jars and containers Progress Met OT Problem 3 OT Problem #3 Impaired Range of Motion OT Goal 1 Goal / Goal Update Client's active right forearm supination will increase from 60 degrees to 80 degrees to improve independence with carrying items during home mgmt and work related tasks Target Visit 28 Progress Partially Met OT Goal 2 Goal / Goal Update Client's active wrist ROM will increase 10 or more degrees to improve independence with cutting up food Target Visit 10 Progress Met OT Problem 4 OT Problem #4 Impaired Strength OT Goal 1 Goal / Goal Update The client will demonstrate 5/5 muscle strength of R wrist flexion/extension and elbow (upon release from MD for weight bearing of shoulder; see PT) in order to return to work tasks. Target Visit 28 Progress Partially Met
--- NOTE | 2024-07-23 14:36 | PTOPDC ---
Assessment and note entered by JT File, PT Evaluation Information Assessment Status Discharge Diagnosis s/p R RTC repair, R labral debridement, R SAD ICD-10 Condition Codes (PT) Z47.89 Other ICD-10 Condition Codes ( Z47.89 PT) Onset 10/16/23 Subjective Information patient reports the shoulder feels good today, but he is still bothered by the R elbow, R forearm /wrist, back, and R knee/ankle. 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 he does still have to pass and FCE to return to work. however, he reports he is done with therapy today. Reported Pain Level Pain Score 0: Self Report Assessment PT Clinical Summary mr. shafer presents to skilled PT services for treatment and re-evaluation of the R shoulder. he no longer has pain in the R shoulder, but does have pain in other joints of his body. in regards to the shoulder, he has improved strength overall, but is limited at times due to pain in the R elbow. he has mad no progress towards goals since his last re-evaluation, but is ready to DC skilled PT of the R shoulder today. he would benefit from continuing HEP independent at home. Plan of Care PT Services Indicated Yes
== END 2024-07-23 16:04 | disposition home or self-care (01) ==
LOC: CHSPT 14:11
PROVIDERS: Visit Provider Orthopaedic Surgery
DX: Z48.89 Encounter for other specified surgical aftercare (principal); G56.21 Lesion of ulnar nerve, right upper limb; Z98.890 Other specified postprocedural states
CPT/HCPCS: 97110

== ENCOUNTER 2024-08-03 08:30 | Outpatient (CLI) | payer BC, SELFPAY ==
[2024-08-23 17:45] VITALS: BMI 41.1
--- NOTE | 2024-08-23 17:45 | WPDHOMESLEEP ---
Sleep Study - Home Unattended Date of Study: 08/03/24 Ordering Provider: Leonel Jang MD Interpreting Provider: Krystle Morgan DO Home Sleep Study Type: Watch PAT Height: 1.83 m Weight: 137.438 kg Body Mass Index: 41.1 Neck Circumference (inches): 19.5 [place]: 3 Reason for Sleep Study Snoring, witnessed apneas Sleep History The patient is a 64-year-old male that had a sleep study ordered for evaluation of sleep apnea. The patient admits to snoring loudly as well as interruptions in breathing while asleep. He denies choking or gasping at night. he denies having trouble breathing on his back. He denies morning headaches. He does have a dry or sore mouth/ throat in the morning. He denies nocturnal heartburn. He denies nocturia. He denies having trouble falling asleep or staying asleep. He denies having difficulty returning to sleep if he wakes up throughout the night. He denies hypnotic or sedative use. He denies feeling anxious about sleep. He does feel tired or sleepy during the day. He does feel tired in the morning. He denies having the urge to fall asleep during the day. He denies feeling drowsy while driving. He denies sleep paralysis, cataplexy and hypnagogic / hypnopompic hallucinations. He denies clenching or grinding his teeth. He denies kicking or jerking his legs excessively. He denies having a restless feeling in his legs. He goes to bed at 10:00 p.m. on work days and at 11:30 p.m. on his days off. It takes him 15 minutes to fall asleep. He gets 7 hours 15 minutes of sleep on his work days and 7 hours of sleep on his days off. His sleep is somewhat restorative on his days off. He denies taking any planned naps. He denies dream enactment behavior. He denies sleep walking. He denies consuming caffeinated beverages throughout the day. He denies tobacco and alcohol use. He denies exercising on a regular basis. [facility] Past Medical History Medical History Morbid obesity Major depressive disorder, recurrent, mild Essential (primary) hypertension Ulnar neuropathy of right upper extremity Depression Osteoarthritis Hyperlipidemia Surgical History Surgical History Status post right rotator cuff repair (~10/16/23) Labral Debridement and sub acromial decompression History of carpal tunnel release with Guyon's tunnel release, nerve transposition, right arm April 07, 2023 H/O sinus surgery 1996 History of total left knee replacement (~11/27/21) History of throat surgery (~1993) Cyst Excision History of left knee surgery 1980 & 1975 - Arthroscopic History of repair of anterior cruciate ligament of right knee (~1995) Family History Family History Father Family history of malignant neoplasm Mother Breast cancer Arthritis Sibling Cerebrovascular accident Other Family history of cardiovascular disease HLD (hyperlipidemia) Hypertension Social History Social History Smoking status: Former smoker Tobacco type: cigarettes Second hand tobacco smoke exposure: No Smoking end date: 03/01/23 Additional smoking assessment comments: 2PPD X 20 YRS, QUIT, THEN 0.5 PPD X 3 YRS Alcohol intake: current Drinks per week: 10 Alcohol use details: 15/WEEK WHEN SMOKING - STATES NOW 2/MONTH Substance use: never Substance use type: does not use Other substance usage details: Marijuana over a year ago Do You Feel Safe in your Home?: Yes Lack of Transportation: No Lack of Food: Never True Current Housing: I Have Housing Concerned About Future Housing: No Difficulty Paying for Meds: No Currently Unemployed: No Education: Trade/Vocational Certificate Difficulty w/ Childcare or Family Care: No Living arrangements: with family Occupation/Education: occupation 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 [employer] Gender identity (if verbalized by the patient): Male Sexual Orientation (if Verbalized by the Patient): Straight or Heterosexual Spiritual care concerns: No Medications Home Medications ?Medication ?Instructions ?Recorded ?Confirmed ?Type escitalopram oxalate 10 mg tablet 10 mg PO DAILY #90 tabs 06/25/24 07/16/24 Rx lisinopril 20 mg tablet 20 mg PO DAILY #90 tabs 10/25/24 11/15/24 Rx meloxicam 15 mg tablet 15 mg PO QAM #90 tabs 06/25/24 07/16/24 Rx rosuvastatin 10 mg tablet 10 mg PO DAILY #90 tabs 06/25/24 07/16/24 Rx Wegovy 0.25 mg/0.5 mL subcutaneous 0.25 mg (0.5 mL) subcut WEEKLY #2 08/03/24 Rx pen injector (semaglutide (weight mL loss)) Sleep Procedure The sleep study was completed using [employer]ino[employer]T a technically adequate device with seven channels: peripheral arterial tone, actigraphy, body position, snore, respiratory movement, pulse oximetry, sleep staging, and heart rate. Prior to using the device, the patient received verbal and written instructions for its application and was provided with the help desk phone number for additional telephonic instruction with 24-hour availability of qualified personnel to answer questions. The study was scored using CMS guidelines. Sleep Architecture The total recording time is 8 hrs, 28 min. The total sleep time is 7 hrs, 54 min. Sleep latency is 21 minutes. REM latency is 157 minutes. The patient had 6 episodes of waking. Sleep architecture shows 5.3% deep sleep, 78.7% light sleep, and (as % Total Sleep Time) showed NREM (Light 78.7%; Deep 5.3%), and a 16.0% stage REM. The patient spent 100.0% of total sleep time in the supine position. Sleep efficiency was 93.31. Respiratory Analysis The overall AHI (pAHI 4%:) is 82.8. The central AHI is 2.0. The AHI was 79.9 in NREM and 97.7 in REM sleep. The AHI was 82.8 in Supine and N/A in Non-supine sleep. Percent of Beck Raymundo respirations is 17.2. Oximetry Data The oxygen desaturation index (ALEXEY 4%:) is 77.2. The mean saturation is 93%, and the lowest saturation is 73%. Time spent with saturation < 88% is 44.7 minutes. Snoring Profile Snoring average intensity is 58 dB. The patient snored above 45 decibels for 392.7 minutes, 82.8% of sleep time. Cardiac Profile The average pulse rate is 71 beats per minutes. The lowest pulse rate is 58 bpm. The highest pulse rate reported is 95 bpm. Atrial fibrillation was not detected. Premature beats occur <0.1 per minute. Assessment and Plan Assessment and Plan (1) SANJUANA (obstructive sleep apnea): Code(s): G47.33 - Obstructive sleep apnea (adult) (pediatric) Status: Acute Assessment and Plan: The patient had an overall AHI of 82.8 with desaturation down to 73%. This is consistent with severe sleep apnea. The patient had Beck-Raymundo respirations present 17.2% of the study. The patient spent 44.7 minutes with an oxygen saturation below 88%. Due to the severity of the patient's sleep apnea as well as the presence of Beck-Raymundo respirations, AutoPAP is not an option. I recommend that the patient had a CPAP titration study with the use of a hypnotic ( Lunesta 2-3 mg or Ambien 5-10 mg) to ensure we obtain enough sleep data and find an optimal pressure. (2) Beck-Raymundo respiration: Code(s): R06.3 - Periodic breathing Status: Acute Assessment and Plan: Due to the presence of Beck-Raymundo respirations on the patient's sleep study, I recommend that the patient have an echocardiogram to rule out cardiac pathology. Data The data obtained during this sleep study is adequate for interpretation. Certification This sleep study has been reviewed by a board certified sleep medicine physician.
== END 2024-08-04 15:53 | disposition home or self-care (01) ==
LOC: ANHCSM 08:31
PROVIDERS: PCP Family Medicine; Visit Provider Family Medicine
DX: G47.33 Obstructive sleep apnea (adult) (pediatric) (principal)
CPT/HCPCS: 95800

== ENCOUNTER 2024-09-20 09:11 | Outpatient (CLI) | payer BC, SELFPAY ==
--- NOTE | 2024-10-11 09:33 | P.SLEEP_ITS ---
Sleep Study Date of Study: 09/20/24 Ordering Provider: Leonel Jang MD Interpreting Physician: Krystle Morgan DO Sleep Study Type: CPAP Titration Height: 1.85 m Weight: 132.449 kg Body Mass Index: 38.5 Neck Circumference (inches): 21 [place]: 3 Reason for Sleep Study The patient had a WatchPAT home sleep test on 08/03/2024 that showed an overall AHI of 82.8 with desaturation down to 73%. 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 Sleep History The patient is a 64-year-old male that had a sleep study ordered for evaluation of sleep apnea. The patient admits to snoring loudly as well as interruptions in breathing while asleep. He denies choking or gasping at night. he denies having trouble breathing on his back. He denies morning headaches. He does have a dry or sore mouth/ throat in the morning. He denies nocturnal heartburn. He denies nocturia. He denies having trouble falling asleep or staying asleep. He denies having difficulty returning to sleep if he wakes up throughout the night. He denies hypnotic or sedative use. He denies feeling anxious about sleep. He does feel tired or sleepy during the day. He does feel tired in the morning. He denies having the urge to fall asleep during the day. He denies feeling drowsy while driving. He denies sleep paralysis, cataplexy and hypnagogic / hypnopompic hallucinations. He denies clenching or grinding his teeth. He denies kicking or jerking his legs excessively. He denies having a restless feeling in his legs. He goes to bed at 10:00 p.m. on work days and at 11:30 p.m. on his days off. It takes him 15 minutes to fall asleep. He gets 7 hours 15 minutes of sleep on his work days and 7 hours of sleep on his days off. His sleep is somewhat restorative on his days off. He denies taking any planned naps. He denies dream enactment behavior. He denies sleep walking. He denies consuming caffeinated beverages throughout the day. He denies tobacco and alcohol use. He denies exercising on a regular basis. PMFSH Past Medical History Medical History (Updated 08/24/24 @ 08:52 by Leonel Jang MD) SANJUANA (obstructive sleep apnea) Morbid obesity Major depressive disorder, recurrent, mild Essential (primary) hypertension Ulnar neuropathy of right upper extremity Depression Osteoarthritis Hyperlipidemia Surgical History Surgical History Status post right rotator cuff repair (~10/16/23) Labral Debridement and sub acromial decompression History of carpal tunnel release with Guyon's tunnel release, nerve transposition, right arm April 07, 2023 H/O sinus surgery 1996 History of total left knee replacement (~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) History of throat surgery (~1993) Cyst Excision History of left knee surgery 1980 & 1975 - Arthroscopic History of repair of anterior cruciate ligament of right knee (~1995) Family History Family History Father Family history of malignant neoplasm Mother Breast cancer Arthritis Sibling Cerebrovascular accident Other Family history of cardiovascular disease HLD (hyperlipidemia) Hypertension Social History Social History Smoking status: Former smoker Tobacco type: cigarettes Second hand tobacco smoke exposure: No Smoking end date: 03/01/23 Additional smoking assessment comments: 2PPD X 20 YRS, QUIT, THEN 0.5 PPD X 3 YRS Alcohol intake: current Drinks per week: 10 Alcohol use details: 15/WEEK WHEN SMOKING - STATES NOW 2/MONTH Substance use: never Substance use type: does not use Other substance usage details: Marijuana over a year ago Do You Feel Safe in your Home?: Yes Lack of Transportation: No Lack of Food: Never True Current Housing: I Have Housing Concerned About Future Housing: No Difficulty Paying for Meds: No Currently Unemployed: No Education: Trade/Vocational Certificate Difficulty w/ Childcare or Family Care: No Living arrangements: with family Occupation/Education: occupation 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 Gender identity (if verbalized by the patient): Male Sexual Orientation (if Verbalized by the Patient): Straight or Heterosexual Spiritual care concerns: No Medications Home Medications ?Medication ?Instructions ?Recorded ?Confirmed ?Type escitalopram oxalate 10 mg tablet 10 mg PO DAILY #90 tabs 06/25/24 07/16/24 Rx lisinopril 20 mg tablet 20 mg PO DAILY #90 tabs 06/25/24 07/16/24 Rx meloxicam 15 mg tablet 15 mg PO QAM #90 tabs 06/25/24 07/16/24 Rx rosuvastatin 10 mg tablet 10 mg PO DAILY #90 tabs 06/25/24 07/16/24 Rx Wegovy 0.5 mg/0.5 mL subcutaneous 0.5 mg (0.5 mL) subcut WEEKLY #2 mL 09/15/24 Rx pen injector (semaglutide (weight loss)) eszopiclone 2 mg tablet 2 mg PO ONCE #1 tablet 09/15/24 Rx benzonatate 200 mg capsule 200 mg PO TID PRN cough #30 caps 09/24/24 Rx Sleep Procedure A full night PAP Titration using the [employer] multi-channel system recorded the standard physiologic parameters including EEG, EOG, submentalis EMG, anterior tibialis EMG, EKG, body position, nasal and oral airflow using nasal pressure sensor and thermistor.? Respiratory parameters of chest and abdominal movements were recorded with Respiratory Inductance Plethysmography belts. Oxygen saturation was recorded by pulse oximetry. Video monitoring was also performed. Sleep stages, periodic limb movements, and EEG arousals were scored in 30 second epochs according to the criteria of the AASM Scoring Manual. The Apnea-Hypopnea Index was calculated using CMS guidelines for definition of hypopnea with 4% O2 desaturations while scoring respiratory events. Sleep Architecture The total recording time was 489.6 minutes.? The total sleep time was 377.0 minutes. Sleep latency was 70.1 minutes. REM latency was 104.0 minutes. Sleep efficiency was 77.0%. The patient had 11 awakenings for an awakening index of 1.8. Wake after Sleep Onset time was 42.5 minutes. The patient spent 15.5 minutes, 4.1% of total sleep time in Stage N1. The patient spent 152.0 minutes, 40.3% in Stage N2. The patient spent 92.0 minutes, 24.4% in Stage N3. The patient spent 117.5 minutes, 31.2% in Stage REM. Respiratory Analysis The patient had 190 hypopneas, 1 obstructive apnea and 4 central apneas for an overall Apnea Hypopnea Index of 31.0 events per hour. The REM Apnea Hypopnea Index was 45.4. The NREM Apnea Hypopnea Index was 24.5. The patient had a Central Apnea Hypopnea Index of 0.6. There was no evidence of Beck-Raymundo Respirations. The patient was started on CPAP 6 cm H2O with EPR of 2 and titrated to BPAP 24/20 cm H2O due to hypopneas. The patient was able fall asleep starting on CPAP 7 cm H2O with EPR of 2. The patient was able to achieve REM sleep starting on CPAP 14 cm H2O with EPR of 2. The patient was able to achieve a residual AHI less than 10 with both NREM and REM sleep in the supine position. On BPAP 21/17 cm H2O, the patient spent 53 minutes in NREM and 85 minutes in REM with 6 hypopneas, resulting in an AHI of 5.9. The patient had a sleep efficiency of 99.2% on this pressure setting. When the patient went into REM sleep on this pressure, he developed hypopneas. The pressure was titrated higher to resolve the hypopneas in REM but the hypopnea frequency increased. There is no data with the patient in the lateral position Arousals There were 87 total arousals for an arousal index of 13.8. There were 36 spontaneous arousals for an index of 5.7. ?There were 41 arousals due to respiratory events for an index of 6.5. There were 0 arousals due to periodic limb movements for an index of 0.? There were 9 arousals due to isolated limb movements for an index of 1.4. Periodic Limb Movements The patient had 26 isolated limb movements with an index of 4.1. The patient had 9 periodic limb movements with index of 1.4. Patient had a total of 35 limb movements with a total limb movement index of 5.6. Oximetry Data The patient had an average oxygen saturation of 92.5% in sleep with a minimum oxygen saturation of 76.0% and a maximum oxygen saturation of 98.0%. The patient had 200 oxygen desaturations that were 4% or greater resulting in an Oxygen Desaturation Index of 31.8.? The patient spent 31.9 minutes, 6.6% of total sleep time with an oxygen saturation below 88%. Snoring Profile Moderate snoring was present throughout the study. The snoring resolved once the patient was titrated to BPAP 21/17 cm H2O. Cardiac Profile The EKG showed normal sinus rhythm. The patient had an average pulse rate of 69.9 bpm with a minimum pulse rate of 61.0 bpm and a maximum pulse rate of 90.0 bpm. ? EEG Profile No signs of seizure activity seen. Assessment and Plan Assessment and Plan (1) SANJUANA (obstructive sleep apnea): Code(s): G47.33 - Obstructive sleep apnea (adult) (pediatric) Status: Acute Assessment and Plan: The patient was started on CPAP 6 cm H2O with EPR of 2 and titrated to BPAP 24/20 cm H2O due to hypopneas. We were able to find a pressure that resolved his sleep apnea in all stages of sleep except REM sleep in the supine position. The patient may have to try sleeping in the lateral position if his compliance data shows an elevated residual AHI. I recommend that the patient be prescribed BPAP 21/17 cm H2O, size large Resmed AirTouch F20 full face mask, BPAP filters/tubing and heated humidity. This should be used with all episodes of sleep.? Compliance should be reviewed within 31-90 days of starting therapy for usage greater than 4 hours per night greater than 70% of the nights. The patient should be asked about symptoms such as?excessive daytime sleepiness, quality of sleep, decreased nocturia, increased?mental functioning such as memory, mood, and concentration. Data The data obtained during this sleep study is adequate for interpretation. Certification This sleep study has been reviewed by a board certified sleep medicine physician.
[2024-10-11 10:16] VITALS: BMI 38.5
== END 2024-09-21 07:16 | disposition home or self-care (01) ==
LOC: ANHCSM 09:14
PROVIDERS: PCP Family Medicine; Visit Provider Family Medicine
DX: G47.33 Obstructive sleep apnea (adult) (pediatric) (principal)
CPT/HCPCS: 95811